=== PATIENT | female | born 1950 | race Hispanic/Latino ===

== ENCOUNTER → 2016-03-23 | Outpatient (CLI) | payer MEDICARE, MEDICAID ==
--- NOTE | 2016-03-23 14:47 | CT ---
EXAM DESCRIPTION: CT LUMBAR SPINE WITHOUT IV CONTRAST CLINICAL HISTORY: SPINAL ENTHESOPATHY M48.06 COMPARISON: None. TECHNIQUE: Non contrast transaxial CT images of the lumbar spine are obtained with coronal and sagittal reconstructed images. CT scan was done according to ALARA (As Low as Reasonably Achievable). GENERAL Lumbar vertebral bodies show normal height without compression deformity. Is was normal lumbar lordosis is seen. Hypertrophic mostly anterior right marginal endplate osteophytes are seen throughout the spine mainly in the lower thoracic region. Visualized intra-abdominal and retroperitoneal structures show calcifications of the adrenal gland. Surgical clips in the left upper quadrant are seen. Cortical cysts of the left kidney measures 16 mm. Diffuse osteopenia of the osseous structures is seen with moderate degenerative changes of the sacroiliac joints. T10-11: Mild bilateral facet hypertrophy without significant spinal canal stenosis or foraminal encroachment. T11-12: Mild diffuse disc space narrowing is seen with mild bilateral facet hypertrophic and degenerative changes contributing to mild spinal canal stenosis and foraminal encroachment. T12-L1: Mild diffuse disc space narrowing with mild bilateral facet hypertrophic and degenerative changes are seen. L1-2 Calcification of the posterior longitudinal ligament is seen with mild to moderate bilateral facet hypertrophic and degenerative changes contribute to mild spinal canal stenosis without foraminal encroachment. L2-3 Mild diffuse disc space narrowing is seen with moderate bilateral facet hypertrophic and degenerative changes including ligamentum flavum thickening contributing to moderate spinal canal stenosis with mild right foraminal encroachment. L3-4 Moderate bilateral facet hypertrophic and degenerative changes are seen with ligamentum flavum thickening. There is mild to moderate spinal canal stenosis with at least mild right greater than left foraminal encroachment. L4-5 Severe bilateral facet hypertrophic and degenerative change is seen with 3 mm anterolisthesis of L4 on L5. Air in the right facet joint is seen. Diffuse disc space narrowing is noted. There is moderate to severe spinal canal stenosis. The thecal sac measures 6 mm AP x 9 mm transverse with left greater than right lateral recess encroachment. Mild bilateral foraminal encroachment is seen. L5-S1 Mild diffuse disc space narrowing is seen with severe bilateral facet hypertrophic and degenerative changes right greater than left. There is mild bilateral foraminal encroachment with mild central canal stenosis. IMPRESSION: Multilevel mild to moderate disc degenerative changes with facet arthropathy of the lumbar spine. Facet arthropathy is most significant at the lowest 2 levels. Multifactorial moderate to severe spinal canal stenosis is seen at L4-5. Diffuse osteopenia of the osseous structures is seen. Electronically signed by: Aramis Benites MD 03/23/2016 14:45
== END ==
LOC: CT 13:53
PROVIDERS: ATTEND Neurological Surgery
DX: M48.06 Spinal stenosis, lumbar region (principal); M12.88 Other specific arthropathies, not elsewhere classified, other specified site; M85.88 Other specified disorders of bone density and structure, other site

== ENCOUNTER → 2016-03-27 | Outpatient (CLI) | payer MEDICARE, MEDICAID | LOC: BFHH 11:08 | PROVIDERS: ATTEND Family Medicine | DX: M19.90 Unspecified osteoarthritis, unspecified site (principal); I10 Essential (primary) hypertension; M81.0 Age-related osteoporosis without current pathological fracture ==

== ENCOUNTER → 2016-03-30 | Outpatient (CLI) | payer MEDICARE, MEDICAID ==
--- NOTE | 2016-03-30 14:51 | CT ---
EXAM DESCRIPTION: CT LUMBAR SPINE WITHOUT IV CONTRAST CLINICAL HISTORY: 65 y/o F, SPINAL STENOSIS COMPARISON: None TECHNIQUE: Thin slice imaging of the lumbar spine was performed. Data was reformatted for interpretation. FINDINGS: Vertebral body height is unremarkable. There is anterolisthesis of L4 on L5 due to severe facet degeneration. Atherosclerotic disease of the abdominal aorta noted. Prior cholecystectomy noted. L1-2: Bilateral facet degeneration and ligamentum flavum thickening. No neural foraminal narrowing. The midline diameter of the spinal canal is reduced to an unremarkable 11 mm due to a posterior disc osteophyte complex. L2-L3: Mild facet degeneration ligamentum flavum thickening. There is a 3 mm circumferential disk osteophyte complex. The midline diameter of spinal canal is widely patent measuring 1.3 cm. Bilateral neural foramina are unremarkable. L3-4: Severe moderate bilateral facet degeneration. Mild 3 mm circumferential disc bulge. No spinal canal or neural foraminal narrowing. L4-5: Severe facet degeneration. This results in grade 1 anterolisthesis. Ligamentum flavum thickening is noted. The midline diameter of the spinal canal is moderately narrowed to 7 mm. There is moderate bilateral neural foraminal narrowing noted. There is no definitive exiting nerve root contact at this time. L5-S1: Severe facet degeneration noted. No listhesis. 2 mm circumferential disc bulge. The midline diameter of the spinal canal is widely patent measuring 11 mm. There is mild bilateral neural foraminal narrowing, but no exiting nerve root contact. IMPRESSION: Today's exam demonstrates multilevel degenerative change as described above including degenerative change of bilateral sacroiliac joints. The most pronounced findings are at L4-5. At this level there is severe degenerative facet disease resulting in grade 1 anterolisthesis. Additionally at L4-5 there is moderate spinal canal narrowing as the canal is narrowed to 7 mm due to unroofing of the intervertebral disc and ligamentum flavum thickening. Bilateral neural foraminal narrowing is noted at L4-5 and L5-S1. Electronically signed by: Ky Chavez MD 03/30/2016 14:49
== END ==
LOC: CT 13:50
PROVIDERS: ATTEND Neurological Surgery
DX: M48.06 Spinal stenosis, lumbar region (principal); M12.88 Other specific arthropathies, not elsewhere classified, other specified site; M43.16 Spondylolisthesis, lumbar region

== ENCOUNTER → 2016-04-18 | Outpatient (CLI) | payer MEDICARE, MEDICAID ==
--- NOTE | 2016-04-18 09:55 | RAD ---
EXAM DESCRIPTION: Single-view of the pelvis and two views of the left hip are submitted for interpretation CLINICAL HISTORY: Pelvic pain. COMPARISON: None. TECHNIQUE: Single view of pelvis and two views of left hip. FINDINGS: Left hip arthroplasty. No evidence of hardware loosening. The pelvic ring is intact. Moderate degenerative change of right hip with joint space loss and osteophyte formation. Considerable degenerative change of bilateral sacroiliac joints, the pubic symphysis and lower lumbar spine. Vascular calcifications noted within the iliac vessels. IMPRESSION: No significant abnormality. Electronically signed by: Ky Chavez MD 04/18/2016 09:54
== END ==
LOC: RAD 08:14
PROVIDERS: ATTEND Orthopaedic Surgery
DX: M25.552 Pain in left hip (principal)

== ENCOUNTER 2016-05-01 12:13 | Emergency (ER) | payer MEDICARE, MEDICAID ==
--- NOTE | 2016-05-01 12:41 | ED.PDOC ---
History of Present Illness - General Chief Complaint: Headache Stated Complaint: headache Time Seen by Provider: 05/01/16 12:41 Source: patient, RN notes reviewed, EMS notes reviewed Exam Limitations: no limitations - History of Present Illness Initial Comments: Eduardo 65 y/o female stated that after drinking water this morning had onset of headache generalized sharp,stabbing accompam-nied by nausea/vomiting multiple times.She has history of dm,breast ca-s/p mastectomy htn.Denies blurry vision, head trauma,weakness,dizziness or syncopal episodes. Timing/Duration: 1-3 hours Severity: severe Improving Factors: nothing Worsening Factors: nothing Associated Symptoms: nausea/vomiting Allergies/Adverse Reactions: Allergies Diphenhydramine [From Benadryl] Allergy (Severe, Verified 12/11/15 11:14) Anaphylaxis Ciprofloxacin [From Cipro] Allergy (Verified 12/11/15 11:14) Home Medications: Ambulatory Orders Alprazolam [Xanax] 0.5 mg PO TID PRN 08/18/13 Metformin HCl 500 mg PO BIDFD 08/18/13 Isosorbide Mononitrate [Isosorbide Mononitrate ER] 30 mg PO DAILY 02/01/15 Methotrexate Sodium (Antirheum [Rheumatrex] 15 mg PO FR 02/01/15 Potassium Chloride [Potassium Chloride ER] 20 meq PO BIDFD 02/01/15 Sertraline HCl 100 mg PO DAILY 02/01/15 Acetaminophen W/ Codeine [Tylenol W/ CODEINE #3] 1 ea PO Q4H PRN 06/17/15 Albuterol Inhaler [Ventolin Hfa Inhaler] 1 puff INH QID PRN 06/17/15 Losartan Potassium 25 mg PO DAILY 06/17/15 Adalimumab [Humira Pen] 1 ml SUBCU BIW 10/17/15 Gabapentin 300 mg PO TID 10/17/15 Albuterol Inhaler [Ventolin Hfa Inhaler] 1 puff INH QID 10/18/15 Carvedilol [Coreg] 3.125 mg PO BID 10/18/15 Cholecalciferol [Vitamin D3] 5,000 unit PO DAILY 10/18/15 Ondansetron HCl [Zofran] 4 mg PO Q6H PRN 10/18/15 Acetaminophen [Tylenol] 650 mg PO Q4H PRN #0 tab 10/21/15 Aluminum & Magnesium Hydroxide [Maalox] 30 ml PO Q4H PRN #0 ud 10/21/15 Docusate Calcium [Surfak] 240 mg PO BEDTIME #0 cap 10/21/15 Levalbuterol Nebs [Xopenex NEBS] 1.25 mg NEB RTTID #0 vial 10/21/15 Rivaroxaban [Xarelto] 10 mg PO QD #32 tab 10/21/15 HYDROcodone 5MG/APAP 325MG [[place] 5/325] 1 - 2 tab PO Q6H PRN 12/11/15 Pantoprazole Sodium [Protonix] 40 mg PO ACBK 12/11/15 Sulfamethoxazole-Trimethoprim [Bactrim Ds 800-160 mg] 1 tab PO BID #20 tab 12/10 Insulin Lispro (Human) [Humalog] 300 unit SC ACHS 12/14/15 Magnesium Hydroxide [Milk Of Magnesia] 30 ml PO PRN 12/14/15 Nystatin Powder 15 gm TOP BID 12/14/15 Doxycycline Hyclate 100 mg PO QAM #10 tab 12/17/15 Sulfa/Trimeth 800/160 (Ds) Tab [Bactrim DS Tab] 1 ea PO BID #20 tab 12/17/15 Acetaminophen W/ Codeine [Tylenol w/Codeine 300-30 mg] 1 tab PO TID PRN #10 tab 05/01/16 Methocarbamol [Robaxin] 500 mg PO BID #10 tab 05/01/16 Review of Systems - Review of Systems Constitutional: States: no symptoms reported EENTM: States: no symptoms reported Respiratory: States: no symptoms reported Cardiology: States: no symptoms reported Gastrointestinal/Abdominal: States: nausea, vomiting Genitourinary: States: no symptoms reported Musculoskeletal: States: no symptoms reported Skin: States: no symptoms reported Neurological: States: headache Endocrine: States: no symptoms reported Hematologic/Lymphatic: States: no symptoms reported Past Medical History (General) - Patient Medical History Hx Seizures: No Hx Stroke: Yes - 1996 Hx Dementia: No Hx Asthma: No Hx of COPD: No Hx Cardiac Disorders: Yes - CHF Hx Congestive Heart Failure: No Hx Pacemaker: Yes Hx Hypertension: Yes Hx Thyroid Disease: No Hx Diabetes: Yes Hx Gastroesophageal Reflux: Yes Hx Renal Disease: No Hx Cancer: Yes - BREAST Hx of HIV: No Hx Hepatitis C: No Hx MRSA: Yes Hx Other PMH: Yes - Connective tissue disease MRSA Source:: Wound Surgical History: cholecystectomy, other - neck,bilateral mastectomy - Vaccination History Hx Tetanus, Diphtheria Vaccination: Yes Hx Influenza Vaccination: No Hx Pneumococcal Vaccination: Yes - Social History Hx Tobacco Use: No Hx Chewing Tobacco Use: No Hx Alcohol Use: No Hx Substance Use: No Hx Substance Use Treatment: No Hx Depression: No Hx Physical Abuse: No Hx Emotional Abuse: No Hx Suspected Abuse: No - Female History Patient : No Family Medical History - Family History Grandparents Family History: Unknown Hx Cardiac Disease: Yes Hx Family Diabetes: Yes Physical Exam - Physical Exam General Appearance: Alert, Other - in pain Eye Exam: bilateral normal Ears, Nose, Throat: hearing grossly normal, normal ENT inspection, normal pharynx Neck: non-tender, full range of motion, supple Respiratory: chest non-tender, lungs clear, normal breath sounds, no respiratory distress, other - mastectomy bilateral Cardiovascular/Chest: normal peripheral pulses, regular rate, rhythm, no edema, no gallop, no JVD, no murmur Peripheral Pulses: radial,right: 2+, radial,left: 2+ Gastrointestinal/Abdominal: normal bowel sounds, non tender, soft, no organomegaly, no pulsatile mass Back Exam: normal inspection, no CVA tenderness, no vertebral tenderness Extremity: normal range of motion, non-tender, normal inspection 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, no motor/sensory deficits, alert, normal mood/affect Skin Exam: normal color, warm/dry Lymphatic: no adenopathy Progress - Results/Orders Results/Orders: 05/01/16 12:45 EKG STAT Laboratory Results WBC 11.4 K/mm3 (4.8-10.8) H 05/01/16 13:21 RBC 4.40 M/mm3 (4.20-5.40) 05/01/16 13:21 Hgb 11.9 gm/dL (12.0-16.0) L 05/01/16 13:21 Hct 36.3 % (36.0-47.0) 05/01/16 13:21 MCV 82.5 fl (81.0-99.0) 05/01/16 13:21 MCH 27.0 pg (27.0-31.0) 05/01/16 13:21 MCHC 32.8 g/dL (33.0-37.0) L 05/01/16 13:21 RDW 16.7 % (11.5-14.5) H 05/01/16 13:21 Plt Count 142 K/mm3 (130-400) 05/01/16 13:21 MPV 8.3 fl (7.40-10.4) 05/01/16 13:21 Absolute Neuts (auto) 10.20 K/uL (1.8-6.8) H 05/01/16 13:21 Absolute Lymphs (auto) 0.90 K/uL (1.0-3.4) L 05/01/16 13:21 Absolute Monos (auto) 0.20 K/uL (0.2-0.8) 05/01/16 13:21 Absolute Eos (auto) 0.10 K/uL (0.0-0.4) 05/01/16 13:21 Absolute Basos (auto) 0.10 K/uL (0.0-0.1) 05/01/16 13:21 Neutrophils % 89.2 % (42.0-78.0) H 05/01/16 13:21 Lymphocytes % 7.5 % (20.0-50.0) L 05/01/16 13:21 Monocytes % 1.8 % (2.0-9.0) L 05/01/16 13:21 Eosinophils % 0.9 % (1.0-5.0) L 05/01/16 13:21 Basophils % 0.6 % (0.0-2.0) 05/01/16 13:21 Sodium 134 mmol/L (135-145) L 05/01/16 13:21 Potassium 3.9 mmol/L (3.6-5.0) 05/01/16 13:21 Chloride 103 mmol/L (101-111) 05/01/16 13:21 Carbon Dioxide 23 mmol/L (21-31) 05/01/16 13:21 Anion Gap 11.9 (12-18) L 05/01/16 13:21 BUN 16 mg/dL (7-18) 05/01/16 13:21 Creatinine 0.66 mg/dL (0.6-1.3) 05/01/16 13:21 BUN/Creatinine Ratio 24.2 (10-20) H 05/01/16 13:21 Random Glucose 114 mg/dL (70-105) H 05/01/16 13:21 Serum Osmolality 270.3 mOsm/L (275-295) L 05/01/16 13:21 Calcium 9.4 mg/dL (8.4-10.2) 05/01/16 13:21 Total Bilirubin 0.8 mg/dL (0.2-1.0) 05/01/16 13:21 AST 29 IU/L (10-42) 05/01/16 13:21 ALT 29 IU/L (10-60) 05/01/16 13:21 Alkaline Phosphatase 82 IU/L (42-121) 05/01/16 13:21 Serum Total Protein 7.4 gm/dL (6.4-8.2) 05/01/16 13:21 Albumin 4.2 g/dl (3.2-5.5) 05/01/16 13:21 Globulin 3.2 gm/dL (2.3-3.5) 05/01/16 13:21 Albumin/Globulin Ratio 1.3 (1.1-1.9) 05/01/16 13:21 Lipase 29 U/L (22-51) 05/01/16 13:21 Departure - Departure Clinical Impression: Cervicogenic headache Time of Disposition: 16:59 Disposition: Discharge to Home or Self Care Condition: Good Departure Forms: ED Discharge - Pt. Copy, Patient Portal Self Enrollment Instructions: DI for Headache Prescriptions: Methocarbamol [Robaxin] 500 mg PO BID #10 tab Acetaminophen W/ Codeine [Tylenol w/Codeine 300-30 mg] 1 tab PO TID PRN #10 tab PRN Reason: Headache/Migraine Pain Home Medications: Ambulatory Orders Alprazolam [Xanax] 0.5 mg PO TID PRN 08/18/13 Metformin HCl 500 mg PO BIDFD 08/18/13 Isosorbide Mononitrate [Isosorbide Mononitrate ER] 30 mg PO DAILY 02/01/15 Methotrexate Sodium (Antirheum [Rheumatrex] 15 mg PO FR 02/01/15 Potassium Chloride [Potassium Chloride ER] 20 meq PO BIDFD 02/01/15 Sertraline HCl 100 mg PO DAILY 02/01/15 Acetaminophen W/ Codeine [Tylenol W/ CODEINE #3] 1 ea PO Q4H PRN 06/17/15 Albuterol Inhaler [Ventolin Hfa Inhaler] 1 puff INH QID PRN 06/17/15 Losartan Potassium 25 mg PO DAILY 06/17/15 Adalimumab [Humira Pen] 1 ml SUBCU BIW 10/17/15 Gabapentin 300 mg PO TID 10/17/15 Albuterol Inhaler [Ventolin Hfa Inhaler] 1 puff INH QID 10/18/15 Carvedilol [Coreg] 3.125 mg PO BID 10/18/15 Cholecalciferol [Vitamin D3] 5,000 unit PO DAILY 10/18/15 Ondansetron HCl [Zofran] 4 mg PO Q6H PRN 10/18/15 Acetaminophen [Tylenol] 650 mg PO Q4H PRN #0 tab 10/21/15 Aluminum & Magnesium Hydroxide [Maalox] 30 ml PO Q4H PRN #0 ud 10/21/15 Docusate Calcium [Surfak] 240 mg PO BEDTIME #0 cap 10/21/15 Levalbuterol Nebs [Xopenex NEBS] 1.25 mg NEB RTTID #0 vial 10/21/15 Rivaroxaban [Xarelto] 10 mg PO QD #32 tab 10/21/15 HYDROcodone 5MG/APAP 325MG [[place] 5/325] 1 - 2 tab PO Q6H PRN 12/11/15 Pantoprazole Sodium [Protonix] 40 mg PO ACBK 12/11/15 Sulfamethoxazole-Trimethoprim [Bactrim Ds 800-160 mg] 1 tab PO BID #20 tab 12/10 Insulin Lispro (Human) [Humalog] 300 unit SC ACHS 12/14/15 Magnesium Hydroxide [Milk Of Magnesia] 30 ml PO PRN 12/14/15 Nystatin Powder 15 gm TOP BID 12/14/15 Doxycycline Hyclate 100 mg PO QAM #10 tab 12/17/15 Sulfa/Trimeth 800/160 (Ds) Tab [Bactrim DS Tab] 1 ea PO BID #20 tab 12/17/15 Acetaminophen W/ Codeine [Tylenol w/Codeine 300-30 mg] 1 tab PO TID PRN #10 tab 05/01/16 Methocarbamol [Robaxin] 500 mg PO BID #10 tab 05/01/16 Additional Instructions: RETURN TO EMERGENCY ROOM NEEDED
[2016-05-01 12:42] VITALS: TEMP 99.2
[2016-05-01] MEDS ORDERED: ONDANSETRON INJ 4 MG/2 ML VIAL IV ONE (12:42)
[2016-05-01] MEDS ORDERED: SODIUM CHLORIDE 0.9% 1000ML 1,000 ML IVS ONE (12:43)
[2016-05-01] MEDS ORDERED: HYDROmorphone HCL INJ 2 MG/ML VIAL IV ONE (13:34)
--- NOTE | 2016-05-01 14:19 | CT ---
EXAM DESCRIPTION: CT HEAD WITHOUT IV CONTRAST CLINICAL HISTORY: headache COMPARISON: 18 February 2016 TECHNIQUE: Non contrast cranial CT FINDINGS: Ventricles and sulci are unremarkable. There is no hemorrhage or mass. There are no white matter abnormalities detected. The calvarium is unremarkable. The visualized paranasal sinuses and the mastoids are clear. IMPRESSION: 1. Normal CT head Electronically signed by: Chico Arrieta MD 05/01/2016 14:17
--- NOTE | 2016-05-01 15:41 | RAD ---
EXAM DESCRIPTION: XR CHEST 1 VIEW CLINICAL HISTORY: cough COMPARISON: November 16, 2014 TECHNIQUE: AP portable chest. FINDINGS: There is mild cardiomegaly and vascular prominence which may indicate early CHF. Unipolar pacer is present unchanged. No effusion. IMPRESSION: 1. Cardiomegaly with vascular congestion Electronically signed by: Abhijit Huerta MD 05/01/2016 15:40
[2016-05-01 17:16] VITALS: BP 127/54; O2SAT 98
== END 2016-05-01 17:16 | disposition home or self-care (01) ==
LOC: ER 12:13
DX: R51 Headache (principal); Z88.3 Allergy status to other anti-infective agents; Z79.899 Other long term (current) drug therapy; Z86.73 Personal history of transient ischemic attack (TIA), and cerebral infarction without residual deficits; I11.0 Hypertensive heart disease with heart failure; I50.9 Heart failure, unspecified; Z95.0 Presence of cardiac pacemaker; E11.9 Type 2 diabetes mellitus without complications; Z85.3 Personal history of malignant neoplasm of breast; Z90.13 Acquired absence of bilateral breasts and nipples; M35.9 Systemic involvement of connective tissue, unspecified
CPT/HCPCS: 36415; 70450; 71010; 80053; 83690; 85025; 93005; J1170; J2405; J7030

== ENCOUNTER 2016-05-02 12:39 | Emergency (ER) | payer MEDICARE, MEDICAID ==
[2016-05-02] MEDS: SODIUM CHLORIDE 0.9% (FLUSH) 10 ML SYG IV PRN (13:23)
--- NOTE | 2016-05-02 13:28 | CT ---
EXAM DESCRIPTION: CT HEAD WITHOUT IV CONTRAST CLINICAL HISTORY: Headache/mental status changes/weakness COMPARISON: May 01, 2016 TECHNIQUE: Noncontrast transaxial CT images of the head are obtained from base to vertex. CT scan was done according to ALARA (As Low as Reasonably Achievable). FINDINGS: The midline structures are not displaced. Sulci are age-appropriate. There are areas of decreased attenuation in the periventricular white matter and the white matter of the centrum semiovale. There is no evidence of mass, mass-effect, hydrocephalus, or acute intracranial hemorrhage. No abnormal extra axial fluid collection is seen. Bone windows show no evidence of depressed skull fracture. Moderate mucosal thickening is seen in the right greater than left ethmoid air cells to right frontal sinus. IMPRESSION: 1. Age-appropriate atrophy with evidence of old small vessel ischemic type changes seen. 2. No acute abnormality is seen on noncontrast CT of the head. Electronically signed by: Aramis Benites MD 05/02/2016 13:26
--- NOTE | 2016-05-02 15:25 | ED.PDOC ---
History of Present Illness - General Chief Complaint: Headache Stated Complaint: headache,altered neuro Time Seen by Provider: 05/02/16 12:43 Source: RN notes reviewed, Vital Signs reviewed, family, EMS, old records Exam Limitations: clinical condition - History of Present Illness Initial Comments: Patient is a 65 y/o female who was brought in by EMS due to change in mental status and headache. Patient was seen here in the ED yesterday, was worked up, and was discharged with a diagnosis of headache. She was given Tylenol #3 and Robaxin for her headache. She did not get her prescriptons filled. Her grandson went to check on her today and noticed she was not acting normally, so EMS was called. Patient is lethargic, and although she wakes, she is unable to focus on questions to answer them. This is much different than her baseline according to Patient's daughters. Patient had surgery on her C-spine two weeks ago, and was given hydrocodone/ apap 10/325 and tramadol 50. It is unknown how many of these Patient has taken , however according to her daughters, Patient is not the type of person to take any kind of medication other than according to directions. Timing/Duration: unsure - Last known normal yesterday in the ED. Allergies/Adverse Reactions: Allergies Diphenhydramine [From Benadryl] Allergy (Severe, Verified 12/11/15 11:14) Anaphylaxis Ciprofloxacin [From Cipro] Allergy (Verified 12/11/15 11:14) Home Medications: Ambulatory Orders Alprazolam [Xanax] 0.5 mg PO TID PRN 08/18/13 Metformin HCl 500 mg PO BIDFD 08/18/13 Isosorbide Mononitrate [Isosorbide Mononitrate ER] 30 mg PO DAILY 02/01/15 Methotrexate Sodium (Antirheum [Rheumatrex] 15 mg PO FR 02/01/15 Potassium Chloride [Potassium Chloride ER] 20 meq PO BIDFD 02/01/15 Sertraline HCl 100 mg PO DAILY 02/01/15 Acetaminophen W/ Codeine [Tylenol W/ CODEINE #3] 1 ea PO Q4H PRN 06/17/15 Albuterol Inhaler [Ventolin Hfa Inhaler] 1 puff INH QID PRN 06/17/15 Losartan Potassium 25 mg PO DAILY 06/17/15 Adalimumab [Humira Pen] 1 ml SUBCU BIW 10/17/15 Gabapentin 300 mg PO TID 10/17/15 Albuterol Inhaler [Ventolin Hfa Inhaler] 1 puff INH QID 10/18/15 Carvedilol [Coreg] 3.125 mg PO BID 10/18/15 Cholecalciferol [Vitamin D3] 5,000 unit PO DAILY 10/18/15 Ondansetron HCl [Zofran] 4 mg PO Q6H PRN 10/18/15 Acetaminophen [Tylenol] 650 mg PO Q4H PRN #0 tab 10/21/15 Aluminum & Magnesium Hydroxide [Maalox] 30 ml PO Q4H PRN #0 ud 10/21/15 Docusate Calcium [Surfak] 240 mg PO BEDTIME #0 cap 10/21/15 Levalbuterol Nebs [Xopenex NEBS] 1.25 mg NEB RTTID #0 vial 10/21/15 Rivaroxaban [Xarelto] 10 mg PO QD #32 tab 10/21/15 HYDROcodone 5MG/APAP 325MG [[place] 5/325] 1 - 2 tab PO Q6H PRN 12/11/15 Pantoprazole Sodium [Protonix] 40 mg PO ACBK 12/11/15 Sulfamethoxazole-Trimethoprim [Bactrim Ds 800-160 mg] 1 tab PO BID #20 tab 12/10 Insulin Lispro (Human) [Humalog] 300 unit SC ACHS 12/14/15 Magnesium Hydroxide [Milk Of Magnesia] 30 ml PO PRN 12/14/15 Nystatin Powder 15 gm TOP BID 12/14/15 Doxycycline Hyclate 100 mg PO QAM #10 tab 12/17/15 Sulfa/Trimeth 800/160 (Ds) Tab [Bactrim DS Tab] 1 ea PO BID #20 tab 12/17/15 Acetaminophen W/ Codeine [Tylenol w/Codeine 300-30 mg] 1 tab PO TID PRN #10 tab 05/01/16 Methocarbamol [Robaxin] 500 mg PO BID #10 tab 05/01/16 Review of Systems - Review of Systems Constitutional: States: no symptoms reported, weakness Musculoskeletal: States: neck pain Neurological: States: headache, weakness Unable to Obtain Due To: clinical condition - Patient will only occasionally answer questions, however not appropriately. Past Medical History (General) - Patient Medical History Hx Seizures: No Hx Stroke: Yes - 1996 Hx Dementia: No Hx Asthma: No Hx of COPD: No Hx Cardiac Disorders: Yes - CHF Hx Congestive Heart Failure: No Hx Pacemaker: Yes Hx Hypertension: Yes Hx Thyroid Disease: No Hx Diabetes: Yes Hx Gastroesophageal Reflux: Yes Hx Renal Disease: No Hx Cancer: Yes - BREAST Hx of HIV: No Hx Hepatitis C: No Hx MRSA: Yes MRSA Source:: Wound - Vaccination History Hx Tetanus, Diphtheria Vaccination: Yes Hx Influenza Vaccination: No Hx Pneumococcal Vaccination: Yes - Social History Hx Tobacco Use: No Hx Chewing Tobacco Use: No Hx Alcohol Use: No Hx Substance Use: No Hx Substance Use Treatment: No Hx Depression: No Hx Physical Abuse: No Hx Emotional Abuse: No Hx Suspected Abuse: No - Female History Patient is a Female of Child Bearing Age (10 -59 yrs old): No Patient : No Family Medical History - Family History Grandparents Family History: Unknown Hx Cardiac Disease: Yes Hx Family Diabetes: Yes Physical Exam - Physical Exam General Appearance: No apparent distress, Lethargic, Obese, Restless Eye Exam: bilateral normal Ears, Nose, Throat: hearing grossly normal Neck: other - incision on right neck - clean/dry/intact Respiratory: lungs clear, normal breath sounds, no respiratory distress, no accessory muscle use Cardiovascular/Chest: regular rate, rhythm, no edema, no gallop, no murmur Gastrointestinal/Abdominal: normal bowel sounds, non tender, soft, no organomegaly Extremity: non-tender Neurologic: abnormal silicator II-XII - Patient will not follow instructions, motor weakness, other - oriented x 1 Skin Exam: warm/dry Progress - Progress Progress: 05/02/16 15:48 Patient's sodium and potassium have changed significantly since yesterday - Na+ + 134 to 129, K+ 3.9 to 3.0. Family requested that we transfer Patient to [place] because her family lives in [place]. 05/02/16 15:49 - Results/Orders Results/Orders: 05/02/16 12:51 Temperature 99.4 F Pulse Rate [ 104 H Left Ulnar] Respiratory 20 Rate Blood Pressure 101/63 [Left Arm] O2 Sat by Pulse 97 Oximetry 05/02/16 12:55 Telemetry .ONCE Sodium Chloride 0.9% (Flush) [Saline Flush Syringe] 10 ml IV PRN PRN 05/02/16 13:00 EKG STAT 05/02/16 15:08 KCl 20Meq/Water For Inj 100Ml [Potassium 20meq in Water 100ml] 20 meq Premix Bag 1 bag IVPB ONCE Laboratory Results WBC 12.8 K/mm3 (4.8-10.8) H 05/02/16 13:35 RBC 4.11 M/mm3 (4.20-5.40) L 05/02/16 13:35 Hgb 11.1 gm/dL (12.0-16.0) L 05/02/16 13:35 Hct 33.5 % (36.0-47.0) L 05/02/16 13:35 MCV 81.6 fl (81.0-99.0) 05/02/16 13:35 MCH 27.0 pg (27.0-31.0) 05/02/16 13:35 MCHC 33.0 g/dL (33.0-37.0) 05/02/16 13:35 RDW 16.0 % (11.5-14.5) H 05/02/16 13:35 Plt Count 131 K/mm3 (130-400) 05/02/16 13:35 MPV 8.4 fl (7.40-10.4) 05/02/16 13:35 Absolute Neuts (auto) 11.30 K/uL (1.8-6.8) H 05/02/16 13:35 Absolute Lymphs (auto) 0.70 K/uL (1.0-3.4) L 05/02/16 13:35 Absolute Monos (auto) 0.70 K/uL (0.2-0.8) 05/02/16 13:35 Absolute Eos (auto) 0.00 K/uL (0.0-0.4) 05/02/16 13:35 Absolute Basos (auto) 0.10 K/uL (0.0-0.1) 05/02/16 13:35 Neutrophils % 88.2 % (42.0-78.0) H 05/02/16 13:35 Lymphocytes % 5.8 % (20.0-50.0) L 05/02/16 13:35 Monocytes % 5.2 % (2.0-9.0) 05/02/16 13:35 Eosinophils % 0.1 % (1.0-5.0) L 05/02/16 13:35 Basophils % 0.7 % (0.0-2.0) 05/02/16 13:35 PT 15.5 SECONDS (9.4-12.5) H 05/02/16 13:35 INR 1.380 05/02/16 13:35 PTT (SP) 29.0 SECONDS (25.1-36.5) 05/02/16 13:35 Sodium 129 mmol/L (135-145) L 05/02/16 13:35 Potassium 3.0 mmol/L (3.6-5.0) L D 05/02/16 13:35 Chloride 97 mmol/L (101-111) L 05/02/16 13:35 Carbon Dioxide 22 mmol/L (21-31) 05/02/16 13:35 Anion Gap 13.0 (12-18) 05/02/16 13:35 BUN 15 mg/dL (7-18) 05/02/16 13:35 Creatinine 0.72 mg/dL (0.6-1.3) 05/02/16 13:35 BUN/Creatinine Ratio 20.8 (10-20) H 05/02/16 13:35 Random Glucose 137 mg/dL (70-105) H 05/02/16 13:35 Serum Osmolality 261.9 mOsm/L (275-295) L 05/02/16 13:35 Calcium 8.8 mg/dL (8.4-10.2) 05/02/16 13:35 Total Bilirubin 1.3 mg/dL (0.2-1.0) H D 05/02/16 13:35 AST 18 IU/L (10-42) 05/02/16 13:35 ALT 20 IU/L (10-60) 05/02/16 13:35 Alkaline Phosphatase 61 IU/L (42-121) D 05/02/16 13:35 Creatine Kinase 50 IU/L (26-140) 05/02/16 13:35 CK-MB (CK-2) 0.7 ng/mL (0.0-4.4) 05/02/16 13:35 CK-MB (CK-2) % Not Reportable 05/02/16 13:35 Troponin I 0.04 ng/mL (0.01-0.05) 05/02/16 13:35 Serum Total Protein 7.0 gm/dL (6.4-8.2) 05/02/16 13:35 Albumin 3.7 g/dl (3.2-5.5) 05/02/16 13:35 Globulin 3.3 gm/dL (2.3-3.5) 05/02/16 13:35 Albumin/Globulin Ratio 1.1 (1.1-1.9) 05/02/16 13:35 Urine Color Nicole (Yellow) H 05/02/16 14:29 Urine Appearance Cloudy (Clear) 05/02/16 14:29 Urine pH 7.0 (4.5-7.8) 05/02/16 14:29 Ur Specific [place] 1.025 (1.005-1.030) 05/02/16 14:29 Urine Protein 100 mg/dL H 05/02/16 14:29 Urine Glucose (UA) Negative mg/dL (Negative) 05/02/16 14:29 Urine Ketones Negative mg/dL (NEGATIVE) 05/02/16 14:29 Urine Blood Moderate (Negative) H 05/02/16 14:29 Urine Nitrite Negative 05/02/16 14:29 Urine Bilirubin Small (NEGATIVE) H 05/02/16 14:29 Urine Urobilinogen 1.0 mg/dL (0.2-1.0) 05/02/16 14:29 Ur Leukocyte Esterase Negative (Negative) 05/02/16 14:29 Urine RBC 5-10 /hpf H 05/02/16 14:29 Urine WBC 0-1 /hpf 05/02/16 14:29 Ur Epithelial Cells 0-1 /hpf 05/02/16 14:29 Urine Bacteria 4+ H 05/02/16 14:29 - EKG/XRAY/CT EKG: Sinus - 87 bpm, no ST T wave changes, Changed from - 05/01/2016 - Normal QT Comments: NML axis, Prolonged QT, Abnormal EKG CT Ordered: Yes CT Interpretation Call Back: No - Report sent - no acute process Departure - Departure Clinical Impression: Hyponatremia with decreased serum osmolality, Hypokalemia Altered mental status Qualifiers: Altered mental status type: somnolence Qualifier Code: (R40.0) Somnolence Headache Qualifiers: Headache type: unspecified Headache chronicity pattern: acute headache Intractability: intractable Qualifier Code: (R51) Headache Time of Disposition: 15:46 Condition: Poor Home Medications: Ambulatory Orders Alprazolam [Xanax] 0.5 mg PO TID PRN 08/18/13 Metformin HCl 500 mg PO BIDFD 08/18/13 Isosorbide Mononitrate [Isosorbide Mononitrate ER] 30 mg PO DAILY 02/01/15 Methotrexate Sodium (Antirheum [Rheumatrex] 15 mg PO FR 02/01/15 Potassium Chloride [Potassium Chloride ER] 20 meq PO BIDFD 02/01/15 Sertraline HCl 100 mg PO DAILY 02/01/15 Acetaminophen W/ Codeine [Tylenol W/ CODEINE #3] 1 ea PO Q4H PRN 06/17/15 Albuterol Inhaler [Ventolin Hfa Inhaler] 1 puff INH QID PRN 06/17/15 Losartan Potassium 25 mg PO DAILY 06/17/15 Adalimumab [Humira Pen] 1 ml SUBCU BIW 10/17/15 Gabapentin 300 mg PO TID 10/17/15 Albuterol Inhaler [Ventolin Hfa Inhaler] 1 puff INH QID 10/18/15 Carvedilol [Coreg] 3.125 mg PO BID 10/18/15 Cholecalciferol [Vitamin D3] 5,000 unit PO DAILY 10/18/15 Ondansetron HCl [Zofran] 4 mg PO Q6H PRN 10/18/15 Acetaminophen [Tylenol] 650 mg PO Q4H PRN #0 tab 10/21/15 Aluminum & Magnesium Hydroxide [Maalox] 30 ml PO Q4H PRN #0 ud 10/21/15 Docusate Calcium [Surfak] 240 mg PO BEDTIME #0 cap 10/21/15 Levalbuterol Nebs [Xopenex NEBS] 1.25 mg NEB RTTID #0 vial 10/21/15 Rivaroxaban [Xarelto] 10 mg PO QD #32 tab 10/21/15 HYDROcodone 5MG/APAP 325MG [[place] 5/325] 1 - 2 tab PO Q6H PRN 12/11/15 Pantoprazole Sodium [Protonix] 40 mg PO ACBK 12/11/15 Sulfamethoxazole-Trimethoprim [Bactrim Ds 800-160 mg] 1 tab PO BID #20 tab 12/10 Insulin Lispro (Human) [Humalog] 300 unit SC ACHS 12/14/15 Magnesium Hydroxide [Milk Of Magnesia] 30 ml PO PRN 12/14/15 Nystatin Powder 15 gm TOP BID 12/14/15 Doxycycline Hyclate 100 mg PO QAM #10 tab 12/17/15 Sulfa/Trimeth 800/160 (Ds) Tab [Bactrim DS Tab] 1 ea PO BID #20 tab 12/17/15 Acetaminophen W/ Codeine [Tylenol w/Codeine 300-30 mg] 1 tab PO TID PRN #10 tab 05/01/16 Methocarbamol [Robaxin] 500 mg PO BID #10 tab 05/01/16 Transfer to Outside Facility - Transfer Information Accepting Provider:: Dr. Lovett Accepting Facility: [facility] Reason for Transfer: Family request
[2016-05-02] MEDS ORDERED: KCL 20MEQ/WATER FOR INJ 100ML 100 ML IVPB ONE (15:43)
[2016-05-02] MEDS: KCL 20MEQ/WATER FOR INJ 100ML 20 MEQ in PREMIX BAG 1 BAG IVPB ONE (15:43)
[2016-05-02 16:03] VITALS: TEMP 97.9
[2016-05-02 16:14] VITALS: BP 108/62; O2SAT 96
== END 2016-05-02 16:14 | disposition short-term general hospital (02) ==
LOC: ER 12:39
DX: E87.1 Hypo-osmolality and hyponatremia (principal); E87.6 Hypokalemia; R51 Headache; R40.0 Somnolence; Z88.3 Allergy status to other anti-infective agents; Z88.8 Allergy status to other drugs, medicaments and biological substances; Z79.899 Other long term (current) drug therapy; I11.0 Hypertensive heart disease with heart failure; I50.9 Heart failure, unspecified; E11.9 Type 2 diabetes mellitus without complications; K21.9 Gastro-esophageal reflux disease without esophagitis; Z95.0 Presence of cardiac pacemaker; Z86.73 Personal history of transient ischemic attack (TIA), and cerebral infarction without residual deficits; Z85.3 Personal history of malignant neoplasm of breast
CPT/HCPCS: 36415; 70450; 80053; 81001; 82550; 82553; 84484; 85025; 85610; 85730; 93005; J3480

== ENCOUNTER → 2016-07-31 | Outpatient (CLI) | payer MEDICARE, MEDICAID | END | disposition home or self-care (01) | LOC: BFHH 08:48 | PROVIDERS: ATTEND Family Medicine | DX: E11.9 Type 2 diabetes mellitus without complications (principal); I10 Essential (primary) hypertension; E78.5 Hyperlipidemia, unspecified ==

== ENCOUNTER → 2016-09-14 | Outpatient (CLI) | payer MEDICARE, MEDICAID | END | disposition home or self-care (01) | LOC: CT 14:31 | PROVIDERS: ATTEND Neurological Surgery | DX: M43.16 Spondylolisthesis, lumbar region (principal) ==

== ENCOUNTER → 2016-09-26 | Outpatient (CLI) | payer MEDICARE, MEDICAID ==
--- NOTE | 2016-09-26 15:17 | CT ---
EXAM DESCRIPTION: Pelvis CLINICAL HISTORY: 66 years Female, PAIN COMPARISON: CT of the lumbar spine dated 14 September 2016, AP pelvis dated 18 April 2016 TECHNIQUE: Transaxial images were obtained without intravenous or oral contrast media. Sagittal and coronal reconstruction was performed.This exam was performed according to our departmental dose-optimization program, which includes automated exposure control, adjustment of the mA and/or kV according to patient size and/or use of iterative reconstruction technique. FINDINGS: Pedicle screw fusion is observed in the lower lumbar spine. Calcific atherosclerotic changes observed in the abdominal aorta and iliac vessels without evidence of aneurysmal dilatation. No pelvic adenopathy is observed. No free fluid is observed. The patient is post hysterectomy. Imaging of the pelvis is mildly degraded by metallic artifact from a left hip prosthesis. Degenerative changes are observed in the sacroiliac joints bilaterally. Degenerative changes are also observed in the right hip. No acute fracturing is detected. No bowel abnormality is seen. IMPRESSION: 1. Pedicle screw and interbody fusion is observed at the L4-5 level. 2. A right hip arthroplasty is observed. 3. Degenerative changes are seen in both sacroiliac joints. Electronically signed by: Chico Arrieta MD 09/26/2016 3:15 PM CDT
== END | disposition home or self-care (01) ==
LOC: CT 08:52
PROVIDERS: ATTEND Neurological Surgery
DX: M16.0 Bilateral primary osteoarthritis of hip (principal)

== ENCOUNTER → 2016-10-31 | Outpatient (CLI) | payer MEDICARE, MEDICAID | LOC: LAB.O 09:35 | PROVIDERS: ATTEND Orthopaedic Surgery | DX: M16.12 Unilateral primary osteoarthritis, left hip (principal); G89.18 Other acute postprocedural pain; T84.84XD Pain due to internal orthopedic prosthetic devices, implants and grafts, subsequent encounter ==

== ENCOUNTER 2016-11-02 18:10 | Emergency (ER) | payer MEDICARE, MEDICAID ==
--- NOTE | 2016-11-02 19:14 | ED.PDOC ---
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 Pain is non-radiating, cramping in nature, constant but intermittent in intensity, worse with movement, better with rest, no previous episodes. No associated symptoms. Timing/Duration: 1 hour Severity: moderate Improving Factors: rest Worsening Factors: movement Associated Symptoms: denies symptoms Allergies/Adverse Reactions: Allergies Diphenhydramine [From Benadryl] Allergy (Severe, Verified 11/02/16 18:29) Anaphylaxis Ciprofloxacin [From Cipro] Allergy (Verified 11/02/16 18:29) Home Medications: Ambulatory Orders Alprazolam [Xanax] 0.5 mg PO TID PRN 08/18/13 Metformin HCl 500 mg PO BIDFD 08/18/13 Isosorbide Mononitrate [Isosorbide Mononitrate ER] 30 mg PO DAILY 02/01/15 Methotrexate Sodium (Antirheum [Rheumatrex] 15 mg PO SA 02/01/15 Potassium Chloride [Potassium Chloride ER] 20 meq PO BIDFD 02/01/15 Sertraline HCl 100 mg PO DAILY 02/01/15 Albuterol Inhaler [Ventolin Hfa Inhaler] 1 puff INH QID PRN 06/17/15 Losartan Potassium 25 mg PO DAILY 06/17/15 Gabapentin 300 mg PO TID 10/17/15 Carvedilol [Coreg] 3.125 mg PO BID 10/18/15 Levalbuterol Nebs [Xopenex NEBS] 1.25 mg NEB RTTID #0 vial 10/21/15 Pantoprazole Tablet [Protonix] 40 mg PO DAILY 12/11/15 Methocarbamol [Robaxin] 500 mg PO BID #10 tab 05/01/16 Review of Systems - Review of Systems Constitutional: States: no symptoms reported EENTM: States: no symptoms reported Respiratory: States: no symptoms reported Cardiology: States: no symptoms reported Gastrointestinal/Abdominal: States: see HPI Genitourinary: States: no symptoms reported Musculoskeletal: States: no symptoms reported Skin: States: no symptoms reported Neurological: States: no symptoms reported Endocrine: States: no symptoms reported Hematologic/Lymphatic: States: no symptoms reported Past Medical History (General) - Patient Medical History Hx Seizures: No Hx Stroke: Yes - 1996 Hx Dementia: No Hx Asthma: No Hx of COPD: No Hx Cardiac Disorders: Yes - CHF Hx Congestive Heart Failure: No Hx Pacemaker: Yes Hx Hypertension: Yes Hx Thyroid Disease: No Hx Diabetes: Yes Hx Gastroesophageal Reflux: Yes Hx Renal Disease: No Hx Cancer: Yes - BREAST Hx of HIV: No Hx Hepatitis C: No Hx MRSA: Yes MRSA Source:: Wound - Vaccination History Hx Tetanus, Diphtheria Vaccination: Yes Hx Influenza Vaccination: No Hx Pneumococcal Vaccination: Yes - Social History Hx Tobacco Use: No Hx Chewing Tobacco Use: No Hx Alcohol Use: No Hx Substance Use: No Hx Substance Use Treatment: No Hx Depression: No Hx Physical Abuse: No Hx Emotional Abuse: No Hx Suspected Abuse: No - Female History Patient is a Female of Child Bearing Age (10 -59 yrs old): No Patient : No Family Medical History - Family History Grandparents Family History: Unknown Living Status: Hx Cardiac Disease: Yes Hx Family Diabetes: Yes Physical Exam - Physical Exam General Appearance: Alert Respiratory: lungs clear Cardiovascular/Chest: normal peripheral pulses, regular rate, rhythm Gastrointestinal/Abdominal: other - TTP over bladder. No guarding nor rebound tenderness. NABS. negative Juarez's sign. Back Exam: no CVA tenderness Progress - Progress Progress: 11/02/16 21:48 CT showed no acute abdominal process. Patient is anemia with mildly elevated liver enzymes. EKG read by me showed NSR with no ST elevations nor depressions. No T wave inversions. No LBBB. Laboratory Tests 11/02/16 11/02/16 11/02/16 18:59 18:59 19:21 WBC 4.7 L RBC 4.19 L Hgb 10.3 L Hct 31.4 L MCV 74.9 L MCH 24.5 L MCHC 32.7 L RDW 17.4 H Plt Count 131 MPV 7.9 Absolute Neuts (auto) 2.60 Absolute Lymphs (auto) 1.50 Absolute Monos (auto) 0.30 Absolute Eos (auto) 0.30 Absolute Basos (auto) 0.10 Neutrophils % 55.8 Lymphocytes % 31.4 Monocytes % 6.1 Eosinophils % 5.6 H Basophils % 1.1 Sodium 138 Potassium 4.1 Chloride 102 Carbon Dioxide 26 Anion Gap 14.1 BUN 26 H Creatinine 0.57 L BUN/Creatinine Ratio 45.6 H Random Glucose 81 Serum Osmolality 279.5 Calcium 9.1 Total Bilirubin 0.3 AST 114 H ALT 91 H Alkaline Phosphatase 126 H Creatine Kinase 58 CK-MB (CK-2) 2.9 CK-MB (CK-2) % Not Reportable Troponin I < 0.02 Serum Total Protein 6.8 Albumin 3.7 Globulin 3.1 Albumin/Globulin Ratio 1.2 Lipase 36 Urine Color Yellow Urine Appearance Clear Urine pH 5.5 Ur Specific [place] 1.020 Urine Protein Negative Urine Glucose (UA) Negative Urine Ketones Trace Urine Blood Negative Urine Nitrite Negative Urine Bilirubin Negative Urine Urobilinogen 0.2 Ur Leukocyte Esterase Negative Urine RBC 0-1 Urine WBC 1-3 Ur Epithelial Cells 3-5 Urine Bacteria 1+ Departure - Departure Clinical Impression: Pelvic pain, Anemia, Elevated liver enzymes Disposition: Discharge to Home or Self Care Condition: Good Departure Forms: ED Discharge - Pt. Copy, Patient Portal Self Enrollment Instructions: DI for Abdominal Pain-Adult Diet: resume usual diet Activity: increase activity as tolerated Referrals: Jemal Gonzalez MD [Primary Care Provider] - 1-2 Weeks Home Medications: Ambulatory Orders Alprazolam [Xanax] 0.5 mg PO TID PRN 08/18/13 Metformin HCl 500 mg PO BIDFD 08/18/13 Isosorbide Mononitrate [Isosorbide Mononitrate ER] 30 mg PO DAILY 02/01/15 Methotrexate Sodium (Antirheum [Rheumatrex] 15 mg PO SA 02/01/15 Potassium Chloride [Potassium Chloride ER] 20 meq PO BIDFD 02/01/15 Sertraline HCl 100 mg PO DAILY 02/01/15 Albuterol Inhaler [Ventolin Hfa Inhaler] 1 puff INH QID PRN 06/17/15 Losartan Potassium 25 mg PO DAILY 06/17/15 Gabapentin 300 mg PO TID 10/17/15 Carvedilol [Coreg] 3.125 mg PO BID 10/18/15 Levalbuterol Nebs [Xopenex NEBS] 1.25 mg NEB RTTID #0 vial 10/21/15 Pantoprazole Tablet [Protonix] 40 mg PO DAILY 12/11/15 Methocarbamol [Robaxin] 500 mg PO BID #10 tab 05/01/16 Additional Instructions: Visite [facility] en la semana entrante. Print Language: Azeri
[2016-11-02 19:16] VITALS: O2SAT 97
[2016-11-02] MEDS ORDERED: MORPHINE SULFATE INJ 10 MG/ML VIAL IM ONE (21:08)
[2016-11-02] MEDS ORDERED: MORPHINE SULFATE INJ 10 MG/ML VIAL ONE (21:09)
--- NOTE | 2016-11-02 21:31 | CT ---
EXAM DESCRIPTION: Abdoment/Pelvis w/o Contrast CLINICAL HISTORY: pelvic pain COMPARISON: None Available TECHNIQUE: Contiguous axial images of the abdomen and pelvis were obtained followed by reconstruction images. This exam was performed according to our departmental dose-optimization program, which includes automated exposure control, adjustment of the mA and/or kV according to patient size and/or use of iterative reconstruction technique. FINDINGS: There is a calcified pulmonary nodule within the left lung. Linear opacities within the lungs may represent scar versus subsegmental atelectasis. Patient is status post cholecystectomy. There is atherosclerosis. Patient is status post lumbar surgery. Patient is status post left hip arthroplasty. Metallic artifact degrades multiple images. Calcification within the pelvis may represent a phlebolith. The liver, spleen, pancreas and kidneys are within normal limits. There is no hydronephrosis or renal stones. Adrenal glands are within normal limits. Aorta is of normal caliber and tapering. There is no free fluid in the abdomen or pelvis. There is no bowel obstruction. There is no stranding of the mesenteric fat to suggest an inflammatory response. The appendix is within normal limits. There is no pericecal inflammation. Patient is status post hysterectomy. IMPRESSION: No acute intra-abdominal abnormality Electronically signed by: Samuel Sheehan MD 11/02/2016 9:30 PM CDT
[2016-11-02 21:51] VITALS: TEMP 97.5
[2016-11-02 22:07] VITALS: BP 130/64
== END 2016-11-02 22:13 | disposition home or self-care (01) ==
LOC: ER 18:10
DX: R10.2 Pelvic and perineal pain (principal); D64.9 Anemia, unspecified; R74.8 Abnormal levels of other serum enzymes; I11.0 Hypertensive heart disease with heart failure; I50.9 Heart failure, unspecified; E11.9 Type 2 diabetes mellitus without complications; K21.9 Gastro-esophageal reflux disease without esophagitis; Z86.73 Personal history of transient ischemic attack (TIA), and cerebral infarction without residual deficits; Z85.3 Personal history of malignant neoplasm of breast; Z79.899 Other long term (current) drug therapy; Z88.8 Allergy status to other drugs, medicaments and biological substances
CPT/HCPCS: 36415; 74176; 80053; 81001; 82550; 82553; 83690; 84484; 85025; 93005; J2270

== ENCOUNTER 2016-12-15 15:42 | Emergency (ER) | payer MEDICARE, MEDICAID ==
[2016-12-15 16:12] VITALS: TEMP 98.6
[2016-12-15] MEDS ORDERED: KETOROLAC TROMETHAMINE INJ 30 MG/ML VIAL IM ONE (16:14)
[2016-12-15] MEDS ORDERED: predniSONE 20 MG TAB PO ONE (16:14)
[2016-12-15] MEDS ORDERED: CARISOPRODOL 350 MG TAB PO ONE (16:15)
--- NOTE | 2016-12-15 16:17 | ED.PDOC ---
History of Present Illness - General Chief Complaint: Back Pain or Injury Stated Complaint: Back pain Time Seen by Provider: 12/15/16 15:45 Source: patient Exam Limitations: no limitations - History of Present Illness Initial Comments: The patient is a 66-year-old female presenting to the emergency room secondary to chronic persistent left low back pain and left hip pain. She had surgeries in both sites within the last year. She is apparently scheduled to have further surgeries at both sites in the coming weeks. The patient takes hydrocodone written by her orthopedist apparently. She ran out of this yesterday and was unable to get it filled in time for the weekend so her pain has gotten worse. No new symptoms. No incontinence. She is a diabetic. No recent injury. She has had workup for the persistent pain in both sites with her specialists. Timing/Duration: constant Severity: severe Improving Factors: immobilization, medication Worsening Factors: movement Associated Symptoms: denies symptoms Allergies/Adverse Reactions: Allergies Diphenhydramine [From Benadryl] Allergy (Severe, Verified 12/15/16 16:00) Anaphylaxis Ciprofloxacin [From Cipro] Allergy (Verified 12/15/16 16:00) Home Medications: Ambulatory Orders Alprazolam [Xanax] 0.5 mg PO TID PRN 08/18/13 Metformin HCl 500 mg PO BIDFD 08/18/13 Isosorbide Mononitrate [Isosorbide Mononitrate ER] 30 mg PO DAILY 02/01/15 Methotrexate Sodium (Antirheum [Rheumatrex] 15 mg PO SA 02/01/15 Potassium Chloride [Potassium Chloride ER] 20 meq PO BIDFD 02/01/15 Sertraline HCl 100 mg PO DAILY 02/01/15 Albuterol Inhaler [Ventolin Hfa Inhaler] 1 puff INH QID PRN 06/17/15 Losartan Potassium 25 mg PO DAILY 06/17/15 Gabapentin 300 mg PO TID 10/17/15 Carvedilol [Coreg] 3.125 mg PO BID 10/18/15 Levalbuterol Nebs [Xopenex NEBS] 1.25 mg NEB RTTID #0 vial 10/21/15 Pantoprazole Tablet [Protonix] 40 mg PO DAILY 12/11/15 Methocarbamol [Robaxin] 500 mg PO BID #10 tab 05/01/16 Tramadol HCl 50 mg PO Q6HR PRN #15 tab 12/15/16 Review of Systems - Review of Systems Constitutional: States: no symptoms reported EENTM: States: no symptoms reported Respiratory: States: no symptoms reported Cardiology: States: no symptoms reported Gastrointestinal/Abdominal: States: no symptoms reported Genitourinary: States: no symptoms reported Musculoskeletal: States: back pain, joint pain Skin: States: no symptoms reported Neurological: States: anxiety Endocrine: States: no symptoms reported All other Systems: No Change from Baseline Past Medical History (General) - Patient Medical History Hx Seizures: No Hx Stroke: Yes Hx Dementia: No Hx Asthma: No Hx of COPD: No Hx Cardiac Disorders: Yes Hx Congestive Heart Failure: No Hx Pacemaker: Yes Hx Hypertension: Yes Hx Thyroid Disease: No Hx Diabetes: Yes Hx Gastroesophageal Reflux: Yes Hx Renal Disease: No Hx Cancer: Yes - BREAST Hx of HIV: No Hx Hepatitis C: No Hx MRSA: Yes MRSA Source:: Wound Surgical History: cholecystectomy, pacemaker, other - Vaccination History Hx Tetanus, Diphtheria Vaccination: Yes Hx Influenza Vaccination: Yes - 2015 Hx Pneumococcal Vaccination: Yes - 2014 - Social History Hx Tobacco Use: No Hx Chewing Tobacco Use: No Hx Alcohol Use: No Hx Substance Use: No Hx Substance Use Treatment: No Hx Depression: No Hx Physical Abuse: No Hx Emotional Abuse: No Hx Suspected Abuse: No - Female History Patient is a Female of Child Bearing Age (10 -59 yrs old): No Patient : No Family Medical History - Family History Grandparents Family History: Unknown Living Status: Hx Cardiac Disease: Yes Hx Family Diabetes: Yes Physical Exam - Physical Exam General Appearance: Alert, Anxious Eye Exam: bilateral normal Ears, Nose, Throat: normal ENT inspection, normal pharynx Neck: full range of motion, supple Respiratory: lungs clear, normal breath sounds, no respiratory distress, no accessory muscle use Cardiovascular/Chest: normal peripheral pulses, no edema, other - regular rate Peripheral Pulses: radial,right: 2+, radial,left: 2+, dorsalis pedis,right: 2+, dorsalis pedis,left: 2+ Gastrointestinal/Abdominal: non tender, soft Rectal Exam: deferred Back Exam: other - the patient does have some chronic left paraspinal lumbar discomfort palpation. She also has pain in her left hip with movement of the left hip. No crepitus is noted. Extremity: non-tender, no calf tenderness, normal capillary refill Neurologic: director of media II-XII nml as tested, alert, oriented x 3 Skin Exam: normal color Comments: Vital Signs - 24 hr 12/15/16 16:01 Temperature 98.6 F Pulse Rate [ 85 Left Radial] Respiratory 20 Rate Blood Pressure 81/59 [Left Arm] O2 Sat by Pulse 98 Oximetry above blood pressure was not correct. Blood pressure is 105/62. Progress - Progress Progress: 12/15/16 16:19 the patient is a 66-year-old female with chronic left low back and left hip pain, with her current flare due to running out of her pain medications. She needs to keep follow-up with her specialists. She needs to get her routine pain medications filled on Saturday. the patient will be written for tramadol 50 mg by mouth every 6 hours when necessary #15. she needs to ambulate carefully. She needs to follow-up with her primary care doctor. ER warnings were given. Departure - Departure Clinical Impression: Chronic low back pain Qualifiers: Back pain laterality: left Sciatica presence: with sciatica Sciatica laterality : sciatica of left side Qualified Code(s): M54.42 - Lumbago with sciatica, left side; G89.29 - Other chronic pain Disposition: Discharge to Home or Self Care Condition: Fair Departure Forms: ED Discharge - Pt. Copy, Patient Portal Self Enrollment Instructions: DI for Back Pain With Sciatica Diet: diabetic diet Activity: increase activity as tolerated Referrals: Jemal Gonzalez MD [Primary Care Provider] - 1-5 Days Prescriptions: Tramadol HCl 50 mg PO Q6HR PRN #15 tab PRN Reason: Moderate Pain Home Medications: Ambulatory Orders Alprazolam [Xanax] 0.5 mg PO TID PRN 08/18/13 Metformin HCl 500 mg PO BIDFD 08/18/13 Isosorbide Mononitrate [Isosorbide Mononitrate ER] 30 mg PO DAILY 02/01/15 Methotrexate Sodium (Antirheum [Rheumatrex] 15 mg PO SA 02/01/15 Potassium Chloride [Potassium Chloride ER] 20 meq PO BIDFD 02/01/15 Sertraline HCl 100 mg PO DAILY 02/01/15 Albuterol Inhaler [Ventolin Hfa Inhaler] 1 puff INH QID PRN 04/01/16 Losartan Potassium 25 mg PO DAILY 06/17/15 Gabapentin 300 mg PO TID 10/17/15 Carvedilol [Coreg] 3.125 mg PO BID 10/18/15 Levalbuterol Nebs [Xopenex NEBS] 1.25 mg NEB RTTID #0 vial 10/21/15 Pantoprazole Tablet [Protonix] 40 mg PO DAILY 12/11/15 Methocarbamol [Robaxin] 500 mg PO BID #10 tab 05/01/16 Tramadol HCl 50 mg PO Q6HR PRN #15 tab 12/15/16 Additional Instructions: the patient is a 66-year-old female with chronic left low back and left hip pain, with her current flare due to running out of her pain medications. She needs to keep follow-up with her specialists. She needs to get her routine pain medications filled on Saturday. the patient will be written for tramadol 50 mg by mouth every 6 hours when necessary #15. she needs to ambulate carefully. She needs to follow-up with her primary care doctor. ER warnings were given.
[2016-12-15 17:41] VITALS: BP 104/62; O2SAT 95
== END 2016-12-15 17:30 | disposition home or self-care (01) ==
LOC: ER 15:42
DX: M54.42 Lumbago with sciatica, left side (principal); G89.29 Other chronic pain; I10 Essential (primary) hypertension; E11.9 Type 2 diabetes mellitus without complications; Z95.0 Presence of cardiac pacemaker; Z79.899 Other long term (current) drug therapy; Z88.8 Allergy status to other drugs, medicaments and biological substances
CPT/HCPCS: J1885; J7512

== ENCOUNTER → 2017-01-28 | Outpatient (CLI) | payer MEDICARE, MEDICAID | END | disposition home or self-care (01) | LOC: YCFC.O 11:28 | PROVIDERS: ATTEND Anesthesiology Pain Medicine | DX: Z79.891 Long term (current) use of opiate analgesic (principal) ==

== ENCOUNTER 2017-02-21 08:18 | Day surgery (SDC) | payer MEDICARE, MEDICAID ==
[~2017-02-21 08:18] MED LIST: LACTATED RINGERS 1,000 ML ONE; LIDOCAINE 1% 10 ML VIAL INJ ONE; PROPOFOL 200 MG/20 ML VIAL IV ONE
[2017-02-21] MEDS ORDERED: fentaNYL CITRATE INJ 50 MCG/ML AMP ONE (08:58)
[2017-02-21] MEDS ORDERED: MIDAZOLAM INJ 2 MG/2 ML VIAL ONE (08:58)
[2017-02-21] MEDS ORDERED: SODIUM BICARBONATE VIAL 50 MEQ/50 ML VIAL ONE (09:20)
[2017-02-21] MEDS ORDERED: LIDOCAINE 1% 50 ML VIAL INJ ONE (09:20)
[2017-02-21 11:26] VITALS: BP 104/69; TEMP 97.5; O2SAT 97
[2017-02-21] MEDS ORDERED: HEPARIN SODIUM 100 U/ML 5 ML SYG IV ONE (11:29)
--- NOTE | 2017-02-21 13:52 | RAD ---
EXAM DESCRIPTION: Fluoroscopy Up to 1Hr CLINICAL HISTORY: Radiculopathy. Prior lumbar fusion. COMPARISON: Lumbar myelogram and post myelogram lumbar CT scan on the same visit. TECHNIQUE: Multiplanar fluoroscopic guidance in the surgical suite. 2 images available. Fluoroscopy was not performed by the radiologist.. IMPRESSION: Spinal needle visualized at the L2-3 level. Intradural and extradural contrast is visualized. Posterior lumbar fusion..Please refer to surgical report. Fluoroscopic time was 3 minutes, 15 seconds. Cumulative dose not recorded Permanent images from this procedure are stored in the patient's medical record. Electronically signed by: Wayne Vivar MD 02/21/2017 1:51 PM WHEAT FARMER
--- NOTE | 2017-02-21 21:24 | RAD ---
EXAM DESCRIPTION: MYELOGRAM, LUMBAR SPINE: RF CLINICAL HISTORY: LUMBAR RADICULOPATHY COMPARISON: Post lumbar myelogram CT scan following this procedure. TECHNIQUE: Patient's chart was reviewed, and a limited physical examination was performed. The procedure was explained to the patient with Lithuanian-speaking broadcast meteorologist with risks and benefits. The patient with Lithuanian translation, gave verbal and written consent. The procedure was performed in the OR with conscious sedation administered by Hospital anesthesiologist for approximately 30 minutes. Patient prone on C-arm fluoroscopic table. L2-3 interspinous fossa localized by fluoroscopy. Overlying skin was marked and prepped with sterile solution and sterile draping applied. Subcutaneous and deep 1% xylocaine injection. 3.5 inch, 22-gauge spinal needle introduced into the interspinous fossa under fluoroscopic guidance. Slightly blood-tinged CSF fluid appeared in the hub of the needle, confirming placement in the subarachnoid space. The depth of fluid in the abdomen was significantly affected by respiratory motion. Very minimal opening pressure was noted. Approximately 15 mL of intrathecal contrast was injected under fluoroscopic visualization, with extreme resistance. Contrast was also noted extending into the epidural space and the bilateral L2-3 facet joints. No contrast in the epidural or subarachnoid space below the L3 level. The depth of the needle was checked with the C-arm dated into the lateral position. Patient tolerated the procedure well. Patient transferred to the CT suite. Successful recovery after anesthesia. FINDINGS: C-arm image posterior shows transpedicular fusion bilaterally at L4-5 with cross-link and interbody fusion device. Bilateral connecting rods. Contrast in the intradural and epidural space from L2-3 superiorly. No contrast seen below the L3 level. IMPRESSION: 1. Difficult intradural injection of contrast at the L2-3 level for lumbar myelogram. Injection partially intradural and extradural. No contrast in either space below the L3 level. Please refer to postmyelogram lumbar CT scan. Electronically signed by: Wayne Vivar MD 02/21/2017 9:23 PM NUCLEAR DESIGN ENGINEER Workstation: [email or web address]
--- NOTE | 2017-02-22 09:32 | CT ---
EXAM DESCRIPTION: Lumbar Spine CLINICAL HISTORY: LUMBAR RADICULOPATHY COMPARISON: None Available. TECHNIQUE: Spiral, axial 2.5 mm scans through the lumbar spine after lumbar myelogram using 15 cc of intrathecal nonionic contrast. Coronal and sagittal 2.0 mm Reconstructions. 2.5 mm axial scans with bone algorithm. No complications. No adverse contrast reactions. Total Exam DLP: 1796.9 mGy-cm. This exam was performed according to our departmental CT dose-optimization program which includes automated exposure control, adjustment of the mA and/or kV according to patient size and/or use of iterative reconstruction technique; to reduce radiation dose to as low as reasonably achievable (ALARA). FINDINGS: Trace amount of the contrast material entered the subarachnoid space at the injection site at L2-3. Contrast can be seen in the right facet joint at L2-3. Also in the L2-3 interspinous fossa. Contrast in the epidural space above the injection site to the T9 level. The level of the conus cannot be identified. Contrast does not extend in the epidural space inferior to the mid L3 vertebral body. Minimal posterior bulge of the L2-3 disc. Trace retrolisthesis. Significant hypertrophy of the posterior flavum ligaments left more than right; AP canal diameter 4.1 mm to the left of midline. Moderate bilateral facet arthrosis. Bilateral foraminal stenosis more left than right. L3-4: Bilateral facet arthrosis. Partial bilateral L4 laminectomy. Trace retrolisthesis. Moderate left foraminal stenosis and borderline right foraminal stenosis. Minimal posterior disc bulge. Bilateral transpedicular screws at L4-5 with cross link posterior to the disc space. Interbody fusion device with subsidence into the L4 and L5 endplates. Hardware appears intact. No definite evidence for loosening around the screws. Mild left foraminal stenosis. Trace anterolisthesis. L5-S1 disc space loss and spondylosis. Grade 1 anterolisthesis 8.5 mm. Posterior disc bulge with marginal spurs 3 mm. Moderate left foraminal narrowing. Canal is patent. Large anterior spur abutting the disc at S1. Bilateral facet arthrosis at L5-S1 left more than right. L1-2: Posterior disc bulge 3 mm. Marked facet and ligament hypertrophy posteriorly. By the distribution of epidural contrast, AP canal diameter 6 mm in the midline. Bilateral mild foraminal stenosis. Trace anterolisthesis. T12-L1: Minimal posterior disc bulge. Mild to moderate bilateral facet and ligament hypertrophy. AP canal diameter approximately 10 cm. Bilateral borderline foraminal stenosis. IMPRESSION: 1. Limited study due to almost all the contrast entering the extradural space. Since the contrast was injected when CSF was appearing in the injection needle, it is interpreted that scar tissue in the subarachnoid/intradural space and canal stenosis at L2-3 level is contributing to the lack of contrast flow into the subarachnoid/intradural space. 2. Significant facet and ligament hypertrophy posteriorly at L2-3 and bulging disc contributing to severe canal stenosis. Bilateral foraminal stenosis left more than right. Trace retrolisthesis. 3. Bilateral facet arthrosis and ligament hypertrophy at L3-4 with partial bilateral L4 laminectomy. Trace retrolisthesis and moderate left foraminal stenosis, borderline right foraminal stenosis. 4. L4-5 fusion construct with posterior bilateral transpedicular screws and connecting rods. Connecting length posterior to the disc space. Interbody fusion device is subsiding into the endplates. No bony loosening around the screws with hardware intact. Trace anterolisthesis. 5. And L5-S1 spondylosis. Grade 1 anterolisthesis 8.5 mm. Large anterior spur abutting the disc at S1. Bilateral facet arthrosis left more than right. Moderate left foraminal narrowing. 6. Canal stenosis L1-2 with posterior disc bulge and marked facet and ligament hypertrophy posteriorly. Bilateral mild foraminal stenosis. Trace anterolisthesis. Electronically signed by: Wayne Vivar MD 02/22/2017 9:31 AM HOME HEALTH AIDE
== END 2017-02-21 11:55 | disposition home or self-care (01) ==
LOC: AMB 08:18
PROVIDERS: ATTEND Orthopaedic Surgery
DX: M54.16 Radiculopathy, lumbar region (principal); M54.5 Low back pain; E11.9 Type 2 diabetes mellitus without complications; I11.0 Hypertensive heart disease with heart failure; I50.9 Heart failure, unspecified; Z95.0 Presence of cardiac pacemaker; I25.10 Atherosclerotic heart disease of native coronary artery without angina pectoris; M06.9 Rheumatoid arthritis, unspecified; K21.9 Gastro-esophageal reflux disease without esophagitis; E66.9 Obesity, unspecified; Z88.8 Allergy status to other drugs, medicaments and biological substances; Z79.84 Long term (current) use of oral hypoglycemic drugs; Z79.899 Other long term (current) drug therapy
CPT/HCPCS: 36416; 72131; 72265; 76000; 82948; J1642; J2250; J3010; J3490; J7120

== ENCOUNTER 2017-02-24 12:47 | Emergency (ER) | payer MEDICARE, MEDICAID ==
[2017-02-24 13:58] VITALS: TEMP 97.6
[2017-02-24] MEDS ORDERED: KETOROLAC TROMETHAMINE INJ 60 MG/2 ML VIAL IM ONE (15:14)
--- NOTE | 2017-02-24 15:55 | ED.PDOC ---
History of Present Illness - General Chief Complaint: Abdominal Pain Stated Complaint: abdominal pain Time Seen by Provider: 02/24/17 13:07 Information Source: patient, RN notes reviewed, Vital Signs reviewed Exam Limitations: no limitations Additional Information: pt reports that had a study to evaluate her for surgery and since laying on her right side the right upper abd start been hurting, persistent, no acute changes. - History of Present Illness Abdominal Pain Onset Location: RUQ Pain Radiation: flank Quality: moderate Timing/Duration: 1 week Improving Factors: immobilization Worsening Factors: movement Associated Symptoms: fatigue, nausea/vomiting, weakness Review of Systems - Review of Systems Constitutional: Denies: chills, fever EENTM: Denies: eye pain, tearing, ear pain, nose pain, throat pain, mouth pain, mouth swelling Respiratory: Denies: cough, short of breath, stridor, wheezing Cardiology: Denies: chest pain, edema, palpitations, syncope Gastrointestinal/Abdominal: States: abdominal pain, nausea. Denies: constipation, diarrhea Genitourinary: States: frequency. Denies: dysuria, hematuria Musculoskeletal: Denies: joint pain, joint swelling, muscle pain Skin: Denies: change in color Neurological: Denies: anxiety, depressed Endocrine: Denies: intolerance to cold, intolerance to heat Hematologic/Lymphatic: States: no symptoms reported Past Medical History (General) - Patient Medical History Hx Seizures: No Hx Stroke: Yes Hx Dementia: No Hx Asthma: No Hx of COPD: No Hx Cardiac Disorders: Yes Hx Congestive Heart Failure: No Hx Pacemaker: Yes Hx Hypertension: Yes Hx Thyroid Disease: No Hx Diabetes: No Hx Gastroesophageal Reflux: Yes Hx Renal Disease: No Hx Cancer: Yes - breast Hx of HIV: No Hx Hepatitis C: No Hx MRSA: Yes MRSA Source:: Wound Surgical History: cholecystectomy, other - Vaccination History Hx Tetanus, Diphtheria Vaccination: Yes Hx Influenza Vaccination: Yes - 2015 Hx Pneumococcal Vaccination: Yes - 2014 - Social History Hx Tobacco Use: No Hx Chewing Tobacco Use: No Hx Alcohol Use: No Hx Substance Use: No Hx Substance Use Treatment: No Hx Depression: No Hx Physical Abuse: No Hx Emotional Abuse: No Hx Suspected Abuse: No - Female History Patient : No Family Medical History - Family History Grandparents Family History: Unknown Living Status: Hx Cardiac Disease: Yes Hx Family Diabetes: Yes Progress - Progress Progress: 02/24/17 15:55 02/24/17 13:09 Abdoment/Pelvis w/o Contrast [CT] Stat 02/24/17 13:10 Hold Metformin x 48Hrs [id number] 02/24/17 13:15 EKG STAT 02/24/17 13:51 URINALYSIS Stat Laboratory Results WBC 6.0 K/mm3 (4.8-10.8) 02/24/17 13:53 RBC 4.40 M/mm3 (4.20-5.40) 02/24/17 13:53 Hgb 11.4 gm/dL (12.0-16.0) L 02/24/17 13:53 Hct 34.6 % (36.0-47.0) L 02/24/17 13:53 MCV 78.7 fl (81.0-99.0) L 02/24/17 13:53 MCH 25.9 pg (27.0-31.0) L 02/24/17 13:53 MCHC 32.9 g/dL (33.0-37.0) L 02/24/17 13:53 RDW 21.0 % (11.5-14.5) H 02/24/17 13:53 Plt Count 129 K/mm3 (130-400) L 02/24/17 13:53 MPV 8.3 fl (7.40-10.4) 02/24/17 13:53 Absolute Neuts (auto) 4.50 K/uL (1.8-6.8) 02/24/17 13:53 Absolute Lymphs (auto) 1.00 K/uL (1.0-3.4) 02/24/17 13:53 Absolute Monos (auto) 0.30 K/uL (0.2-0.8) 02/24/17 13:53 Absolute Eos (auto) 0.20 K/uL (0.0-0.4) 02/24/17 13:53 Absolute Basos (auto) 0.10 K/uL (0.0-0.1) 02/24/17 13:53 Neutrophils % 74.7 % (42.0-78.0) 02/24/17 13:53 Lymphocytes % 16.8 % (20.0-50.0) L 02/24/17 13:53 Monocytes % 4.6 % (2.0-9.0) 02/24/17 13:53 Eosinophils % 3.0 % (1.0-5.0) 02/24/17 13:53 Basophils % 0.9 % (0.0-2.0) 02/24/17 13:53 Sodium 139 mmol/L (135-145) 02/24/17 13:53 Potassium 3.9 mmol/L (3.6-5.0) 02/24/17 13:53 Chloride 109 mmol/L (101-111) 02/24/17 13:53 Carbon Dioxide 24 mmol/L (21-31) 02/24/17 13:53 Anion Gap 9.9 (12-18) L 02/24/17 13:53 BUN 19 mg/dL (7-18) H 02/24/17 13:53 Creatinine 0.70 mg/dL (0.6-1.3) 02/24/17 13:53 BUN/Creatinine Ratio 27.1 (10-20) H 02/24/17 13:53 Random Glucose 120 mg/dL (70-105) H 02/24/17 13:53 Serum Osmolality 281.0 mOsm/L (275-295) 02/24/17 13:53 Calcium 9.3 mg/dL (8.4-10.2) 02/24/17 13:53 Total Bilirubin 0.4 mg/dL (0.2-1.0) 02/24/17 13:53 AST 16 IU/L (10-42) 02/24/17 13:53 ALT 12 IU/L (10-60) 02/24/17 13:53 Alkaline Phosphatase 75 IU/L (42-121) 02/24/17 13:53 Serum Total Protein 7.1 gm/dL (6.4-8.2) 02/24/17 13:53 Albumin 4.0 g/dl (3.2-5.5) 02/24/17 13:53 Globulin 3.1 gm/dL (2.3-3.5) 02/24/17 13:53 Albumin/Globulin Ratio 1.3 (1.1-1.9) 02/24/17 13:53 Lipase 27 U/L (22-51) 02/24/17 13:20 02/24/17 16:46 pt feeling much improved after medication. CT scan negative except large amount of stool retention; discussed findings with patient. Repeat abd exam was non surgical and soft/ no tenderness Departure - Departure Clinical Impression: Flank pain ICD-10 Supporting Text: right upper abd tenderness Time of Disposition: 16:50 Disposition: Discharge to Home or Self Care Condition: Good Departure Forms: ED Discharge - Pt. Copy, Patient Portal Self Enrollment Instructions: DI for Abdominal Pain-Adult, Constipation Diet: resume usual diet Activity: ambulate only with walker Referrals: Jemal Gonzalez MD [Primary Care Provider] - 1-2 Weeks Prescriptions: Peg [id number] Bicarb-Sod Ch [Golytely] 1 niurka PO ONCE 1 Days #1 niurka Home Medications: Ambulatory Orders Alprazolam [Xanax] 0.5 mg PO TID PRN 08/18/13 Metformin HCl 500 mg PO BIDFD 08/18/13 Isosorbide Mononitrate [Isosorbide Mononitrate ER] 30 mg PO DAILY 02/01/15 Methotrexate Sodium (Antirheum [Rheumatrex] 15 mg PO SA 02/01/15 Potassium Chloride [Potassium Chloride ER] 20 meq PO BIDFD 02/01/15 Sertraline HCl 100 mg PO DAILY 02/01/15 Albuterol Inhaler [Ventolin Hfa Inhaler] 1 puff INH QID PRN 06/17/15 Losartan Potassium 25 mg PO DAILY 06/17/15 Gabapentin 300 mg PO TID 10/17/15 Carvedilol [Coreg] 3.125 mg PO BID 10/18/15 Levalbuterol Nebs [Xopenex NEBS] 1.25 mg NEB RTTID #0 vial 10/21/15 Pantoprazole Tablet [Protonix] 40 mg PO DAILY 12/11/15 Methocarbamol [Robaxin] 500 mg PO BID #10 tab 05/01/16 Tramadol HCl 50 mg PO Q6HR PRN #15 tab 12/15/16 Peg [id number] Bicarb-Sod Ch [Golytely] 1 niurka PO ONCE 1 Days #1 niurka 02/24/17
--- NOTE | 2017-02-24 15:59 | CT ---
EXAM DESCRIPTION: Abdomen t/Pelvis w/o Contrast CLINICAL HISTORY: 66 years Female, abd pain right upper, right flank COMPARISON: CT scan of the abdomen and pelvis dated 11/02/2016. TECHNIQUE: 5 mm axial images through the abdomen and pelvis were performed after the administration of oral contrast. No intravenous contrast. Coronal and sagittal reconstructions were obtained. This exam was performed according to our departmental dose-optimization program which includes use of Automated Exposure Control, adjustment of the mA and/or kV according to patient size and/or use of iterative reconstruction technique. FINDINGS: Lung bases are clear aside from evidence of prior granulomatous disease. No pericardial or pleural effusion. Previous cholecystectomy. Vascular calcifications are present. Noncontrast images of the liver, spleen, kidneys (small lower pole left renal cyst), adrenal glands and pancreas are unremarkable. No ascites or small bowel obstruction. Nonvisualized appendix. No pericecal fat stranding. Noninflamed diverticulum projects off the proximal colon and several project off the distal colon. Large amount of colonic stool. Oral contrast has not yet reached the colon. Previous hysterectomy. No adnexal mass or bladder calculus or free fluid in the pelvis. Images through the pelvis are degraded by metallic artifact from the left hip replacement. Severe degenerative changes involving the right hip. Postoperative spine with internal degenerative changes. IMPRESSION: No renal calculus or evidence of renal obstruction. No finding to explain this patient's right upper quadrant/right flank pain. Minimal diverticulosis. No evidence of diverticulitis. Large amount of colonic stool. Severe right hip osteoarthritis. Electronically signed by: Vanessa Hinojosa MD 02/24/2017 3:58 PM POSTAL WORKER Workstation: [id number]
[2017-02-24 16:39] VITALS: BP 126/77
[2017-02-24 17:04] VITALS: O2SAT 99
== END 2017-02-24 17:03 | disposition home or self-care (01) ==
LOC: ER 12:47
DX: R10.11 Right upper quadrant pain (principal); I10 Essential (primary) hypertension; K21.9 Gastro-esophageal reflux disease without esophagitis; Z95.0 Presence of cardiac pacemaker; Z85.3 Personal history of malignant neoplasm of breast
CPT/HCPCS: 36415; 74176; 80053; 81001; 83690; 85025; 93005; J1885

== ENCOUNTER 2017-06-12 16:59 | Emergency (ER) | payer MEDICARE, OTHER ==
[2017-06-12 17:18] VITALS: BP 121/55; TEMP 98.1; O2SAT 99
[2017-06-12] MEDS ORDERED: KETOROLAC TROMETHAMINE INJ 60 MG/2 ML VIAL IM ONE (17:40)
[2017-06-12] MEDS ORDERED: HYDROcodone 10MG/APAP 325MG 1 EA TAB PO ONE (17:40)
[2017-06-12] MEDS ORDERED: [UNRECOGNIZED DRUG - OTHER] PO ONE (17:40)
--- NOTE | 2017-06-12 17:50 | ED.PDOC ---
History of Present Illness - General Chief Complaint: Dental/Mouth Stated Complaint: dental/gum pain Time Seen by Provider: 06/12/17 17:39 Source: patient Exam Limitations: no limitations - History of Present Illness Initial Comments: PT PRESENTS TO THE ED WITH COMPLAINT OF GINGIVAL PAIN FOR THE PAST 3 DAYS. PT DOES NOT HAVE DENTIST AND HAS SEVERAL TEETH THAT ARE DECAYED TO THE GUMLINE. Timing/Duration: gradual Severity: severe EENT Location: dental Prearrival Treatment: no prearrival treatment Improving Factors: nothing Worsening Factors: nothing Associated Symptoms: denies symptoms Allergies/Adverse Reactions: Allergies Diphenhydramine [From Benadryl] Allergy (Severe, Verified 12/15/16 16:00) Anaphylaxis Ciprofloxacin [From Cipro] Allergy (Verified 12/15/16 16:00) Home Medications: Ambulatory Orders Alprazolam [Xanax] 0.5 mg PO TID PRN 08/18/13 Metformin HCl 500 mg PO BIDFD 08/18/13 Isosorbide Mononitrate [Isosorbide Mononitrate ER] 30 mg PO DAILY 02/01/15 Methotrexate Sodium (Antirheum [Rheumatrex] 15 mg PO SA 02/01/15 Potassium Chloride [Potassium Chloride ER] 20 meq PO BIDFD 02/01/15 Sertraline HCl 100 mg PO DAILY 02/01/15 Albuterol Inhaler [Ventolin Hfa Inhaler] 1 puff INH QID PRN 06/17/15 Gabapentin 300 mg PO TID 10/17/15 Carvedilol [Coreg] 3.125 mg PO BID 10/18/15 Pantoprazole Tablet [Protonix] 40 mg PO DAILY 12/11/15 Acetaminophen W/ Codeine [Tylenol W/ CODEINE #3] 1 ea PO Q4HR PRN #24 06/12/17 Folic Acid 2 mg PO DAILY 06/12/17 Ibuprofen 800 mg PO Q8HR PRN #30 tab 06/12/17 Penicillin V Potassium 500 mg PO QID 7 Days #28 tab 06/12/17 Review of Systems - Review of Systems Constitutional: Denies: chills, fever EENTM: States: mouth pain. Denies: nose pain, mouth swelling Respiratory: Denies: cough, short of breath Cardiology: Denies: chest pain, palpitations Gastrointestinal/Abdominal: Denies: nausea, vomiting Past Medical History (General) - Patient Medical History Hx Seizures: No Hx Stroke: Yes Hx Dementia: No Hx Asthma: No Hx of COPD: No Hx Cardiac Disorders: Yes Hx Congestive Heart Failure: No Hx Pacemaker: Yes Hx Hypertension: Yes Hx Thyroid Disease: No Hx Diabetes: Yes Hx Gastroesophageal Reflux: Yes Hx Renal Disease: No Hx Cancer: Yes - breast Hx of HIV: No Hx Hepatitis C: No Hx MRSA: Yes MRSA Source:: Wound Surgical History: pacemaker - Vaccination History Hx Tetanus, Diphtheria Vaccination: Yes Hx Influenza Vaccination: No Hx Pneumococcal Vaccination: Yes - Social History Hx Tobacco Use: No Hx Chewing Tobacco Use: No Hx Alcohol Use: No Hx Substance Use: No Hx Substance Use Treatment: No Hx Depression: No Hx Physical Abuse: No Hx Emotional Abuse: No Hx Suspected Abuse: No - Female History Patient : No Family Medical History - Family History Grandparents Family History: Unknown Living Status: Hx Cardiac Disease: Yes Hx Family Diabetes: Yes Physical Exam - Physical Exam General Appearance: Alert, Obvious distress, Well Developed, Well Groomed, Well Hydrated, Well Nourished Eye Exam: bilateral normal Nasal Exam: normal inspection Throat Exam: pharynx normal, dental tenderness - BOTH UPPER MIDDLE INCISORS ARE DECAYED TO THE GUMLINE, THERE IS MILD SWELLING AND ERYTHEMA ABOVE RIGHT MIDDLE INCISOR WITH TENDERNESS TO PALPATION. Neck: non-tender, full range of motion, normal inspection Neurologic: alert, normal mood/affect Skin Exam: normal color, warm/dry Departure - Departure Clinical Impression: Dental abscess, Dental caries, Dental neglect Time of Disposition: 17:51 Disposition: Discharge to Home or Self Care Condition: Fair Departure Forms: ED Discharge - Pt. Copy, Patient Portal Self Enrollment Instructions: DI for Dental Pain, Tooth Abscess Referrals: Jemal Gonzalez MD [Primary Care Provider] - 1-2 Weeks Prescriptions: Acetaminophen W/ Codeine [Tylenol W/ CODEINE #3] 1 ea PO Q4HR PRN #24 PRN Reason: Pain Ibuprofen 800 mg PO Q8HR PRN #30 tab PRN Reason: Pain Penicillin V Potassium 500 mg PO QID 7 Days #28 tab Home Medications: Ambulatory Orders Alprazolam [Xanax] 0.5 mg PO TID PRN 08/18/13 Metformin HCl 500 mg PO BIDFD 08/18/13 Isosorbide Mononitrate [Isosorbide Mononitrate ER] 30 mg PO DAILY 02/01/15 Methotrexate Sodium (Antirheum [Rheumatrex] 15 mg PO SA 02/01/15 Potassium Chloride [Potassium Chloride ER] 20 meq PO BIDFD 02/01/15 Sertraline HCl 100 mg PO DAILY 02/01/15 Albuterol Inhaler [Ventolin Hfa Inhaler] 1 puff INH QID PRN 06/17/15 Gabapentin 300 mg PO TID 10/17/15 Carvedilol [Coreg] 3.125 mg PO BID 10/18/15 Pantoprazole Tablet [Protonix] 40 mg PO DAILY 12/11/15 Acetaminophen W/ Codeine [Tylenol W/ CODEINE #3] 1 ea PO Q4HR PRN #24 06/12/17 Folic Acid 2 mg PO DAILY 06/12/17 Ibuprofen 800 mg PO Q8HR PRN #30 tab 06/12/17 Penicillin V Potassium 500 mg PO QID 7 Days #28 tab 06/12/17
== END 2017-06-12 18:06 | disposition home or self-care (01) ==
LOC: ER 16:59
DX: K02.9 Dental caries, unspecified (principal); K04.7 Periapical abscess without sinus; I10 Essential (primary) hypertension; E11.9 Type 2 diabetes mellitus without complications; K21.9 Gastro-esophageal reflux disease without esophagitis; Z95.0 Presence of cardiac pacemaker; Z85.3 Personal history of malignant neoplasm of breast; Z79.899 Other long term (current) drug therapy

== ENCOUNTER 2017-07-19 10:21 | Emergency (ER) | payer MEDICARE, MEDICAID ==
--- NOTE | 2017-07-19 11:03 | ED.PDOC ---
History of Present Illness - General Chief Complaint: Chest Pain/NV Stated Complaint: chest pain;dizziness Time Seen by Provider: 07/19/17 10:50 Source: patient Exam Limitations: no limitations - History of Present Illness Initial Comments: Patient presents with mid-sternal chest pain since last night. She says it is constant, non-radiating, sharp. She says she had previous episodes when she had her "strokes" 5 years ago and 15 years ago. She also says she has dyspnea. She states that she has a pacemaker for having a "low heart rate". She denies any syncope. She was diagnosed with breast cancer 6 years ago. She denies any history of pulmonary embolisms but both her strokes were ischemic. No other complaints. She also recently had lumbar surgery. Timing/Duration: other - 12 hours Severity: moderate Improving Factors: nothing Worsening Factors: nothing Associated Symptoms: shortness of breath Allergies/Adverse Reactions: Allergies Diphenhydramine [From Benadryl] Allergy (Severe, Verified 12/15/16 16:00) Anaphylaxis Ciprofloxacin [From Cipro] Allergy (Verified 12/15/16 16:00) Home Medications: Ambulatory Orders Alprazolam [Xanax] 0.5 mg PO TID PRN 08/18/13 Metformin HCl 500 mg PO BIDFD 08/18/13 Isosorbide Mononitrate [Isosorbide Mononitrate ER] 30 mg PO DAILY 02/01/15 Methotrexate Sodium (Antirheum [Rheumatrex] 20 mg PO SA 02/01/15 Sertraline HCl 100 mg PO DAILY 02/01/15 Albuterol Inhaler [Ventolin Hfa Inhaler] 1 puff INH QID PRN 06/17/15 Gabapentin 100 mg PO TID 10/17/15 Carvedilol [Coreg] 3.125 mg PO BID 10/18/15 Pantoprazole Tablet [Protonix] 40 mg PO DAILY 12/11/15 Folic Acid 2 mg PO DAILY 06/12/17 Potassium Chloride Microencaps [Klor-Con M20] 20 meq PO BIDFD 07/19/17 Review of Systems - Review of Systems Constitutional: States: no symptoms reported EENTM: States: no symptoms reported Respiratory: States: see HPI Cardiology: States: see HPI Gastrointestinal/Abdominal: States: no symptoms reported Genitourinary: States: no symptoms reported Musculoskeletal: States: no symptoms reported Skin: States: no symptoms reported Neurological: States: no symptoms reported Endocrine: States: no symptoms reported Hematologic/Lymphatic: States: no symptoms reported Past Medical History (General) - Patient Medical History Hx Seizures: No Hx Stroke: Yes Hx Dementia: No Hx Asthma: No Hx of COPD: No Hx Cardiac Disorders: Yes Hx Congestive Heart Failure: No Hx Pacemaker: Yes Hx Hypertension: Yes Hx Thyroid Disease: No Hx Diabetes: Yes Hx Gastroesophageal Reflux: Yes Hx Renal Disease: No Hx Cancer: Yes - breast Hx of HIV: No Hx Hepatitis C: No Hx MRSA: Yes MRSA Source:: Wound - Vaccination History Hx Tetanus, Diphtheria Vaccination: Yes Hx Influenza Vaccination: No Hx Pneumococcal Vaccination: Yes - Social History Hx Tobacco Use: No Hx Chewing Tobacco Use: No Hx Alcohol Use: No Hx Substance Use: No Hx Substance Use Treatment: No Hx Depression: No Hx Physical Abuse: No Hx Emotional Abuse: No Hx Suspected Abuse: No - Female History Patient : No Family Medical History - Family History Grandparents Family History: Unknown Living Status: Hx Cardiac Disease: Yes Hx Family Diabetes: Yes Physical Exam - Physical Exam General Appearance: Alert Eye Exam: bilateral normal Ears, Nose, Throat: normal ENT inspection Neck: non-tender, full range of motion, supple Respiratory: chest non-tender, lungs clear, normal breath sounds, no respiratory distress Cardiovascular/Chest: normal peripheral pulses, regular rate, rhythm, no edema Gastrointestinal/Abdominal: normal bowel sounds, non tender, soft Back Exam: normal inspection, no CVA tenderness Extremity: normal range of motion, non-tender, normal inspection 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 Patient was accepted here for admission but the family refused and requested [facility]. She was given 85 mg Lovenox SQ and transferred by ambulance. Dr. Ny was the accepting physician. 07/19/17 17:53 EKG showed NSR with no ST changes nor T wave inversions. No LBBB. Troponin negative. D-dimer positive. Departure - Departure Clinical Impression: Pulmonary embolism Disposition: Transfer to Hospital Condition: Fair Departure Forms: ED Discharge - Pt. Copy, Patient Portal Self Enrollment Instructions: DI for Chest Pain Diet: other - as per hospitalist Activity: other - as per hospitalist Referrals: Jemal Gonzalez MD [Primary Care Provider] - 1-2 Weeks Home Medications: Ambulatory Orders Alprazolam [Xanax] 0.5 mg PO TID PRN 08/18/13 Metformin HCl 500 mg PO BIDFD 08/18/13 Isosorbide Mononitrate [Isosorbide Mononitrate ER] 30 mg PO DAILY 02/01/15 Methotrexate Sodium (Antirheum [Rheumatrex] 20 mg PO SA 02/01/15 Sertraline HCl 100 mg PO DAILY 02/01/15 Albuterol Inhaler [Ventolin Hfa Inhaler] 1 puff INH QID PRN 06/17/15 Gabapentin 100 mg PO TID 10/17/15 Carvedilol [Coreg] 3.125 mg PO BID 10/18/15 Pantoprazole Tablet [Protonix] 40 mg PO DAILY 12/11/15 Folic Acid 2 mg PO DAILY 06/12/17 Potassium Chloride Microencaps [Klor-Con M20] 20 meq PO BIDFD 07/19/17
--- NOTE | 2017-07-19 11:07 | RAD ---
EXAM DESCRIPTION: Chest,1 View CLINICAL HISTORY: chest pain COMPARISON: May 01, 2016 IMPRESSION: Single AP portable upright view of the chest shows cardiac silhouette and pulmonary vasculature to be within normal limits. Left subclavian single lead transvenous cardiac pacemaker is noted. Right subclavian Mediport remains in good positioning. Lungs are normally aerated and clear. Calcified pulmonary nodule in the left lower lobe is again seen. No obvious pleural effusion or pneumothorax is seen. Electronically signed by: Aramis Benites MD 07/19/2017 11:05 AM CDT
[2017-07-19 16:01] VITALS: O2SAT 100
--- NOTE | 2017-07-19 16:02 | CT ---
EXAM DESCRIPTION: CTA Chest CLINICAL HISTORY: 67 years, Female, suspicion for pulmonary embolism COMPARISON: None TECHNIQUE: CT pulmonary angiography is performed with thin-section multi detector technique during rapid bolus administration of standard adult dose of nonionic iodinated contrast. IV contrast media. Multiplanar reformatted images are reviewed along with source images and maximum intensity projection three dimensional images which were created on a separate dedicated workstation and are stored in the patient's medical record. FINDINGS: Normal enhancement of central pulmonary arteries. In the lower lobes bilaterally, peripheral small vessels appear fairly well enhanced with a few foci of incomplete luminal enhancement suggesting small peripheral emboli (axial images 52 and 61 on the right plus axial images 61 through 63 on the left). These are thought to represent small acute emboli although sequelae of old embolic disease could give a similar appearance. Coronal, sagittal and oblique reformatted MIP images suggest acute emboli in both lower lobes. Clinical correlation recommended. No aortic aneurysm or dissection. Prominent azygos vein is noted. Heart size is normal. No pericardial effusion. Calcified granuloma in the lingula is present. No worrisome pulmonary mass or noncalcified nodule. Normal enhancement of cardiac chambers. Early enhancement of the aorta is negative for aneurysm or dissection. In the upper abdomen, spleen is enlarged. Gallbladder surgically absent. Dense calcification is seen near the left adrenal gland. Upper abdominal viscera are otherwise unremarkable. No chest wall mass or rib fracture. No axillary or lower cervical adenopathy. Port-A-Cath on the right is seen with cardiac pacer power source on the left causing extensive metal artifact. Plate and screws in the lower C-spine cause artifacts. Coronal and sagittal reformatted MIP images confirm the findings. Above results were called to the emergency room physician Dr. Amadeo Patterson at the time of image interpretation 3:59 PM on 07/19/2017. IMPRESSION: Small bilateral peripheral pulmonary emboli in the lower lobes. This exam was performed according to our departmental dose-optimization program, which includes automated exposure control, adjustment of the mA and/or kV according to patient size and/or use of iterative reconstruction technique. Total DLP equals 586.20 mGycm. Electronically signed by: Avinash Perez MD 07/19/2017 4:01 PM CDT
--- NOTE | 2017-07-19 17:23 | CT ---
EXAM DESCRIPTION: Head CLINICAL HISTORY: headache, about to need PE treatment COMPARISON: May 02, 2016 Technique: Contiguous axial images of the brain were obtained without the administration of intravenous contrast. This exam was performed according to our departmental dose-optimization program which includes use of Automated Exposure Control, adjustment of the mA and/or kV according to patient size and/or use of iterative reconstruction technique. Findings: Brain: Mild cerebral atrophy. No hemorrhage. No territorial infarct. No mass effect. No herniation. Ventricles: Within normal limits for patient's age. Bones: No acute osseous abnormality. Paranasal sinuses: Unremarkable. Mastoid air cells: Unremarkable. Soft tissues: No acute abnormality. IMPRESSION: No acute intracranial abnormalities. Electronically signed by: Bernardino Rizo MD 07/19/2017 5:21 PM CDT
[2017-07-19] MEDS ORDERED: ENOXAPARIN SODIUM 100 MG/ML SYG SUBCU ONE (17:58)
[2017-07-19 19:03] VITALS: BP 147/74; TEMP 98.3
== END 2017-07-19 19:04 | disposition short-term general hospital (02) ==
LOC: ER 10:21
DX: I26.99 Other pulmonary embolism without acute cor pulmonale (principal); I10 Essential (primary) hypertension; E11.9 Type 2 diabetes mellitus without complications; Z86.73 Personal history of transient ischemic attack (TIA), and cerebral infarction without residual deficits; Z85.3 Personal history of malignant neoplasm of breast; Z95.0 Presence of cardiac pacemaker; Z79.84 Long term (current) use of oral hypoglycemic drugs; Z79.899 Other long term (current) drug therapy
CPT/HCPCS: 70450; 71045; 71275; 80048; 80076; 82550; 82553; 83880; 84484; 85025; 85379; 85610; 85730; 93005; 94760; J1650

== ENCOUNTER → 2017-08-20 | Outpatient (CLI) | payer MEDICARE, MEDICAID | LOC: GRHH 09:00 | PROVIDERS: ATTEND Family Medicine | DX: E11.42 Type 2 diabetes mellitus with diabetic polyneuropathy (principal); R53.1 Weakness; I10 Essential (primary) hypertension ==

== ENCOUNTER 2017-09-06 13:12 | Emergency (ER) | payer MEDICARE, MEDICAID ==
[2017-09-06 13:47] VITALS: BP 122/80; TEMP 99; O2SAT 98
[2017-09-06] MEDS ORDERED: traMADol HCL 50 MG TAB PO ONE (14:30)
--- NOTE | 2017-09-06 14:38 | ED.PDOC ---
History of Present Illness - General Chief Complaint: Dental/Mouth Stated Complaint: mouth pain from dental surgeries Time Seen by Provider: 09/06/17 13:54 Source: patient, family Exam Limitations: no limitations - History of Present Illness Initial Comments: patient comes in for increasing pain and swelling to the right side of her face. The patient had dental surgery on Saturday on the front portion of her teeth where she had aveoplasty performed on the top middle of her jaw. Patient was told to stop her Eloquis the day prior to procedure and she did. Patient restarted then 12 hours after the procedure was performed. Initially she felt fine the by that evening she started noticing bruising on the right side of her face. Yesterday it worsened today her pain increased considerably. Patient continues to have bruising which looks the same per her family from yesterday which is complaining of more pain now. She has no fever or chills. She's had no nausea or vomiting. She's had no additional trauma or injury. Timing/Duration: gradual, yesterday Severity: moderate EENT Location: mouth Prearrival Treatment: no prearrival treatment Improving Factors: nothing Worsening Factors: nothing Associated Symptoms: denies symptoms Allergies/Adverse Reactions: Allergies Diphenhydramine [From Benadryl] Allergy (Severe, Verified 09/06/17 13:32) Anaphylaxis Ciprofloxacin [From Cipro] Allergy (Verified 09/06/17 13:32) Home Medications: Ambulatory Orders Alprazolam [Xanax] 0.5 mg PO TID PRN 08/18/13 Metformin HCl 500 mg PO BIDFD 08/18/13 Isosorbide Mononitrate [Isosorbide Mononitrate ER] 30 mg PO DAILY 02/01/15 Methotrexate Sodium (Antirheum [Rheumatrex] 20 mg PO SA 02/01/15 Sertraline HCl 100 mg PO DAILY 02/01/15 Albuterol Inhaler [Ventolin Hfa Inhaler] 1 puff INH QID PRN 06/17/15 Gabapentin 100 mg PO TID 10/17/15 Carvedilol [Coreg] 3.125 mg PO BID 10/18/15 Pantoprazole Tablet [Protonix] 40 mg PO DAILY 12/11/15 Folic Acid 2 mg PO DAILY 06/12/17 Potassium Chloride Microencaps [Klor-Con M20] 20 meq PO BIDFD 07/19/17 Tramadol HCl [Ultram] 50 - 100 mg PO BID PRN 3 Days #10 tab 09/06/17 Review of Systems - Review of Systems Constitutional: Denies: chills, diaphoresis, fever EENTM: States: see HPI. Denies: eye pain, ear pain, nose pain, throat pain Respiratory: States: no symptoms reported. Denies: cough, short of breath, wheezing Cardiology: States: no symptoms reported. Denies: chest pain, edema, palpitations Gastrointestinal/Abdominal: States: no symptoms reported. Denies: abdominal pain, diarrhea, nausea, vomiting Genitourinary: States: no symptoms reported Musculoskeletal: States: no symptoms reported Past Medical History (General) - Patient Medical History Hx Seizures: No Hx Stroke: No Hx Dementia: No Hx Asthma: No Hx of COPD: No Hx Cardiac Disorders: Yes Hx Congestive Heart Failure: No Hx Pacemaker: No Hx Hypertension: Yes Hx Thyroid Disease: No Hx Diabetes: No Hx Gastroesophageal Reflux: No Hx Renal Disease: No Hx Cancer: No Hx of HIV: No Hx Hepatitis C: No Hx MRSA: No MRSA Source:: Wound Surgical History: appendectomy, cholecystectomy, Hysterectomy - Vaccination History Hx Tetanus, Diphtheria Vaccination: Yes Hx Influenza Vaccination: Yes Hx Pneumococcal Vaccination: Yes Immunizations Up to Date: No - Social History Hx Tobacco Use: No Hx Chewing Tobacco Use: No Hx Alcohol Use: No Hx Substance Use: No Hx Substance Use Treatment: No Hx Depression: No Feels Threatened In Home Enviroment: No Feels Threatened In a Relationship: No Hx Physical Abuse: No Hx Emotional Abuse: No Hx Suspected Abuse: No - Female History Patient is a Female of Child Bearing Age (10 -59 yrs old): No Patient : No Family Medical History - Family History Grandparents Family History: Unknown Living Status: Hx Family Congestive Heart Failure: No Hx Family Hypertension: No Hx Cardiac Disease: Yes Hx Family Diabetes: Yes Physical Exam - Physical Exam General Appearance: Comfortable, Other - bruising and swelling to the R jaw and cheek area Eye Exam: bilateral normal Ear Exam: bilateral ear: auricle normal, TM normal Nasal Exam: normal inspection, active bleeding, discharge Throat Exam: pharynx normal, dental tenderness, other - patient has no erythema , edema, or fluctulance to the area of the procedure. Neck: non-tender, full range of motion, supple, normal inspection Cardiovascular/Respiratory: regular rate, rhythm, no M/R/G, normal peripheral pulses, no JVD, normal breath sounds, no respiratory distress Abdominal Exam: non-tender, no organomegaly, no hernia Neurologic: resident care technician II-XII nml as tested, alert, oriented x 3 Progress - Progress Progress: 09/06/17 15:06 Laboratory Results WBC 6.1 K/mm3 (4.8-10.8) 09/06/17 14:09 RBC 4.07 M/mm3 (4.20-5.40) L 09/06/17 14:09 Hgb 10.6 gm/dL (12.0-16.0) L 09/06/17 14:09 Hct 32.2 % (36.0-47.0) L 09/06/17 14:09 MCV 79.1 fl (81.0-99.0) L 09/06/17 14:09 MCH 26.0 pg (27.0-31.0) L 09/06/17 14:09 MCHC 33.0 g/dL (33.0-37.0) 09/06/17 14:09 RDW 18.3 % (11.5-14.5) H 09/06/17 14:09 Plt Count 161 K/mm3 (130-400) 09/06/17 14:09 MPV 7.9 fl (7.40-10.4) 09/06/17 14:09 Absolute Neuts (auto) 4.30 K/uL (1.8-6.8) 09/06/17 14:09 Absolute Lymphs (auto) 1.30 K/uL (1.0-3.4) 09/06/17 14:09 Absolute Monos (auto) 0.40 K/uL (0.2-0.8) 09/06/17 14:09 Absolute Eos (auto) 0.10 K/uL (0.0-0.4) 09/06/17 14:09 Absolute Basos (auto) 0.10 K/uL (0.0-0.1) 09/06/17 14:09 Neutrophils % 69.7 % (42.0-78.0) 09/06/17 14:09 Lymphocytes % 21.3 % (20.0-50.0) 09/06/17 14:09 Monocytes % 5.9 % (2.0-9.0) 09/06/17 14:09 Eosinophils % 2.1 % (1.0-5.0) 09/06/17 14:09 Basophils % 1.0 % (0.0-2.0) 09/06/17 14:09 PT 16.6 SECONDS (9.4-12.5) H 09/06/17 14:09 INR 1.440 09/06/17 14:09 PTT (SP) 36.8 SECONDS (25.1-36.5) H 09/06/17 14:09 Sodium 134 mmol/L (135-145) L 09/06/17 14:09 Potassium 3.1 mmol/L (3.6-5.0) L 09/06/17 14:09 Chloride 103 mmol/L (101-111) 09/06/17 14:09 Carbon Dioxide 24 mmol/L (21-31) 09/06/17 14:09 Anion Gap 10.1 (12-18) L 09/06/17 14:09 BUN 14 mg/dL (7-18) 09/06/17 14:09 Creatinine 0.61 mg/dL (0.6-1.3) 09/06/17 14:09 BUN/Creatinine Ratio 23.0 (10-20) H 09/06/17 14:09 Random Glucose 109 mg/dL (70-105) H 09/06/17 14:09 Serum Osmolality 269.3 mOsm/L (275-295) L 09/06/17 14:09 Calcium 9.4 mg/dL (8.4-10.2) 09/06/17 14:09 Total Bilirubin 0.2 mg/dL (0.2-1.0) 09/06/17 14:09 AST 15 IU/L (10-42) 09/06/17 14:09 ALT 12 IU/L (10-60) 09/06/17 14:09 Alkaline Phosphatase 81 IU/L (42-121) 09/06/17 14:09 Serum Total Protein 6.8 gm/dL (6.4-8.2) 09/06/17 14:09 Albumin 3.5 g/dl (3.2-5.5) 06/22/18 14:09 Globulin 3.3 gm/dL (2.3-3.5) 09/06/17 14:09 Albumin/Globulin Ratio 1.1 (1.1-1.9) 09/06/17 14:09 Patient Name: ARAVIND CASAS Gender: Female Date of : 1950 Referring Physician: EMI PANIAGUA Organization: [facility] Accession Number: [id number] Requested Date: September 06, 2017 13:54 Report Status: Final Requested Procedure: 1 Procedure Description: Head Modality: CT Findings Reporting MD: Wayne Vivar Fellow MD: Not available Dictation Time: Chief Human Resources Officer: Not available Senior Biostatistician/Group Leader Date: EXAM DESCRIPTION: Head: Computed Tomography. CLINICAL HISTORY: pain/swelling soft tissue on blood thinners w/ dental COMPARISON: CT noncontrast head 07/19/2017. TECHNIQUE: Non-helical axial scans through the skull and brain, at 5.0 mm intervals, non-contrast. Axial 2.5 mm reconstructions and sagittal and coronal 2.0 mm reconstructions. Total Exam DLP: 967.47 mGy-cm. This exam was performed according to our departmental dose-optimization program which includes automated exposure control, adjustment of the mA and/or kV according to patient size and/or use of iterative reconstruction technique; to reduce radiation dose to as low as reasonably achievable (ALARA). FINDINGS: No hemorrhage, no mass-effect, and no midline shift. Minimum bilateral periventricular low-density also involving the basal ganglia. No abnormal radiodense material in the brain parenchyma. Vascular calcifications anterior; physiologic calcifications in the pineal gland and choroid plexus. No effacement or displacement of the ventricles, CSF spaces, or subdural spaces. Highly prominent for patient's age. No extra axial fluid collection or hemorrhage. No gross abnormalities of the bony calvarium. Included paranasal sinuses and mastoid air cells are well - aerated. IMPRESSION: 1. No hemorrhage, no mass effect, no midline shift. Age-related bilateral brain parenchymal changes which may also be related to cerebral microvascular disease. Cortical atrophy prominent for patient's age but stable since the prior study.. 2. CT scans are insensitive for detecting small CVAs in the first 24 hours after onset. Evaluation of the brain stem is also limited. If symptoms persist, consider NON-EMERGENT MRI scan of the brain with diffusion imaging patient is feeling better after Ultram. Discussed that although we did find some anemia and some chronic changes are not significantly different than prior to the procedure. I believe this still soreness and swelling and have no evidence of infection or significant blood loss at this time. Patient will be given Ultram 50 mg one to 2 twice a day increased swelling, or increased pain. Departure - Departure Clinical Impression: Dental trauma Qualifiers: Encounter type: initial encounter Qualified Code(s): S09.93XA - Unspecified injury of face, initial encounter Disposition: Discharge to Home or Self Care Condition: Good Departure Forms: ED Discharge - Pt. Copy, Patient Portal Self Enrollment Instructions: DI for Mouth Pain Diet: other - soft diet Referrals: Jemal Gonzalez MD [Primary Care Provider] - 1-2 Weeks Home Medications: Ambulatory Orders Alprazolam [Xanax] 0.5 mg PO TID PRN 08/18/13 Metformin HCl 500 mg PO BIDFD 08/18/13 Isosorbide Mononitrate [Isosorbide Mononitrate ER] 30 mg PO DAILY 02/01/15 Methotrexate Sodium (Antirheum [Rheumatrex] 20 mg PO SA 02/01/15 Sertraline HCl 100 mg PO DAILY 02/01/15 Albuterol Inhaler [Ventolin Hfa Inhaler] 1 puff INH QID PRN 06/17/15 Gabapentin 100 mg PO TID 10/17/15 Carvedilol [Coreg] 3.125 mg PO BID 10/18/15 Pantoprazole Tablet [Protonix] 40 mg PO DAILY 12/11/15 Folic Acid 2 mg PO DAILY 06/12/17 Potassium Chloride Microencaps [Klor-Con M20] 20 meq PO BIDFD 07/19/17 Tramadol HCl [Ultram] 50 - 100 mg PO BID PRN 3 Days #10 tab 09/06/17 Additional Instructions: patient may take Ultram for pain and ice to the area. Return to emergency room for temp greater than 100.5, increased swelling, or redness. Follow up with her oral surgeon in 2-3 days to recheck area.
--- NOTE | 2017-09-06 14:56 | CT ---
EXAM DESCRIPTION: Head: Computed Tomography. CLINICAL HISTORY: pain/swelling soft tissue on blood thinners w/ dental COMPARISON: CT noncontrast head 07/19/2017. TECHNIQUE: Non-helical axial scans through the skull and brain, at 5.0 mm intervals, non-contrast. Axial 2.5 mm reconstructions and sagittal and coronal 2.0 mm reconstructions. Total Exam DLP: 967.47 mGy-cm. This exam was performed according to our departmental dose-optimization program which includes automated exposure control, adjustment of the mA and/or kV according to patient size and/or use of iterative reconstruction technique; to reduce radiation dose to as low as reasonably achievable (ALARA). FINDINGS: No hemorrhage, no mass-effect, and no midline shift. Minimum bilateral periventricular low-density also involving the basal ganglia. No abnormal radiodense material in the brain parenchyma. Vascular calcifications anterior; physiologic calcifications in the pineal gland and choroid plexus. No effacement or displacement of the ventricles, CSF spaces, or subdural spaces. Highly prominent for patient's age. No extra axial fluid collection or hemorrhage. No gross abnormalities of the bony calvarium. Included paranasal sinuses and mastoid air cells are well - aerated. IMPRESSION: 1. No hemorrhage, no mass effect, no midline shift. Age-related bilateral brain parenchymal changes which may also be related to cerebral microvascular disease. Cortical atrophy prominent for patient's age but stable since the prior study.. 2. CT scans are insensitive for detecting small CVAs in the first 24 hours after onset. Evaluation of the brain stem is also limited. If symptoms persist, consider NON-EMERGENT MRI scan of the brain with diffusion imaging. Electronically signed by: Wayne Vivar MD 09/06/2017 2:54 PM CDT
== END 2017-09-06 15:32 | disposition home or self-care (01) ==
LOC: ER 13:12
DX: S00.83XA Contusion of other part of head, initial encounter (principal); R22.0 Localized swelling, mass and lump, head; I10 Essential (primary) hypertension; I51.9 Heart disease, unspecified; Z86.14 Personal history of Methicillin resistant Staphylococcus aureus infection; Z88.8 Allergy status to other drugs, medicaments and biological substances; Z88.1 Allergy status to other antibiotic agents; Z98.890 Other specified postprocedural states; Z79.899 Other long term (current) drug therapy; X58.XXXA Exposure to other specified factors, initial encounter; Y92.9 Unspecified place or not applicable

== ENCOUNTER 2017-11-23 16:18 | Emergency (ER) | payer MEDICARE, MEDICAID ==
[2017-11-23] MEDS ORDERED: cloNIDine HCL 0.1 MG TAB PO ONE (17:26)
[2017-11-23 17:41] VITALS: TEMP 97.8
--- NOTE | 2017-11-23 18:21 | RAD ---
EXAM DESCRIPTION: Femur,Left CLINICAL HISTORY: 67 years Female fall COMPARISON: None. TECHNIQUE: LEFT femur, two views FINDINGS: No acute fractures or dislocations are identified. No osseous destructive lesions. Total hip prosthesis placement on the left without evidence to suggest periprosthetic fracture. The sacrum and pelvic bones are obscured by overlying soft tissue artifact and bowel gas. Mild degenerative change at the knee. IMPRESSION: No acute fracture is identified. Left hip prosthesis Electronically signed by: Lashay Dupree MD 11/23/2017 6:20 PM CDT
--- NOTE | 2017-11-23 18:25 | RAD ---
EXAM DESCRIPTION: Lumbar Spine 3 Views CLINICAL HISTORY: 67 years ,Female fall COMPARISON: None. TECHNIQUE: Three views FINDINGS: Bony demineralization. There are pedicle screws and posterior fixation rods at L4 and L5 with intervertebral graft material noted. There is grade 2 anterolisthesis of L5 on S1 which appears similar to the previous exam. No acute fracture noted in the lumbar spine. Mild wedging at T11 which appears increased over the previous examination. Prosthetic hip is noted on the left. IMPRESSION: Grade 1-2 anterolisthesis of L5 on S1 which was present on the previous examination and may have increased slightly Spinal fusion at L4-L5 Mild compression at T11 which is likely chronic but new as compared to the examination from 2017 Electronically signed by: Lashay Dupree MD 11/23/2017 6:23 PM CDT
--- NOTE | 2017-11-23 18:27 | RAD ---
EXAM DESCRIPTION: Pelvis CLINICAL HISTORY: 67 years Female, fall COMPARISON: Correlation with CT abdomen and pelvis 02/24/2017 FINDINGS: Single AP view of the pelvis. No pelvic fracture identified. A left hip arthroplasty is reidentified. Bilateral hip joints alignment appear maintained. Narrowed hip joint space and osteophyte formation are noted at the right hip joint. Pubic symphysis and bilateral SI joints show no acute finding. Also reidentified lower lumbar spine fixation hardware and intervertebral disc material. Moderate amount of stool in the region of the rectum. IMPRESSION: 1. No acute osseous finding of the pelvis. 2. Left hip arthroplasty. Electronically signed by: Connie Ramires MD 11/23/2017 6:26 PM CDT
[2017-11-23] MEDS ORDERED: ONDANSETRON ODT 8 MG TAB SL ONE (18:55)
[2017-11-23] MEDS ORDERED: MORPHINE SULFATE INJ 10 MG/ML VIAL IM ONE (18:55)
--- NOTE | 2017-11-23 18:58 | ED.PDOC ---
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 No point tenderness region. Occurred: just prior to arrival Method of Injury: fell Improving Factors: rest Worsening Factors: movement Associated Symptoms: none Allergies/Adverse Reactions: Allergies Diphenhydramine [From Benadryl] Allergy (Severe, Verified 09/06/17 13:32) Anaphylaxis Ciprofloxacin [From Cipro] Allergy (Verified 09/06/17 13:32) Home Medications: Ambulatory Orders Alprazolam [Xanax] 0.5 mg PO TID PRN 08/18/13 Metformin HCl 500 mg PO BIDFD 08/18/13 Isosorbide Mononitrate [Isosorbide Mononitrate ER] 30 mg PO DAILY 02/01/15 Methotrexate Sodium (Antirheum [Rheumatrex] 20 mg PO SA 02/01/15 Sertraline HCl 100 mg PO DAILY 02/01/15 Albuterol Inhaler [Ventolin Hfa Inhaler] 1 puff INH QID PRN 06/17/15 Gabapentin 100 mg PO TID 10/17/15 Carvedilol [Coreg] 3.125 mg PO BID 10/18/15 Pantoprazole Tablet [Protonix] 40 mg PO DAILY 12/11/15 Folic Acid 2 mg PO DAILY 06/12/17 Potassium Chloride Microencaps [Klor-Con M20] 20 meq PO BIDFD 07/19/17 Tramadol HCl [Ultram] 50 - 100 mg PO BID PRN 3 Days #10 tab 09/06/17 Review of Systems - Review of Systems Constitutional: States: no symptoms reported EENTM: States: no symptoms reported Respiratory: Denies: short of breath Cardiology: Denies: chest pain, syncope Gastrointestinal/Abdominal: Denies: abdominal pain Musculoskeletal: States: see HPI, back pain, joint pain, muscle pain. Denies: neck pain Skin: States: no symptoms reported Neurological: Denies: headache, numbness, weakness Past Medical History (General) - Patient Medical History Hx Seizures: No Hx Stroke: No Hx Dementia: No Hx Asthma: No Hx of COPD: No Hx Cardiac Disorders: Yes Hx Congestive Heart Failure: No Hx Pacemaker: No Hx Hypertension: Yes Hx Thyroid Disease: No Hx Diabetes: No Hx Gastroesophageal Reflux: No Hx Renal Disease: No Hx Cancer: No Hx of HIV: No Hx Hepatitis C: No Hx MRSA: No MRSA Source:: Wound Surgical History: Hysterectomy - Vaccination History Hx Tetanus, Diphtheria Vaccination: Yes Hx Influenza Vaccination: Yes Hx Pneumococcal Vaccination: Yes - Social History Hx Tobacco Use: No Hx Chewing Tobacco Use: No Hx Alcohol Use: No Hx Substance Use: No Hx Substance Use Treatment: No Hx Depression: No Hx Physical Abuse: No Hx Emotional Abuse: No Hx Suspected Abuse: No - Female History Patient : No Family Medical History - Family History Grandparents Family History: Unknown Living Status: Hx Family Congestive Heart Failure: No Hx Family Hypertension: No Hx Cardiac Disease: Yes Hx Family Diabetes: Yes Physical Exam - Physical Exam General Appearance: Alert, Anxious, No apparent distress, Other - uncomfortable Neck: non-tender, full range of motion, supple, normal inspection Cardiovascular/Respiratory: no respiratory distress Gastrointestinal/Abdominal: non-tender Back: normal inspection, no vertebral tenderness, decreased range of motion Thigh/Hip: normal inspection, no evidence of injury, pain, soft tissue tenderness Leg: normal inspection, no evidence of injury, normal ROM Knee: normal inspection, non-tender, no evidence of injury, normal ROM Ankle: normal inspection, normal ROM Foot: normal inspection, normal ROM Neuro/Tendon: normal motor functions, normal tendon functions, responds to pain , no evidence tendon injury Mental Status: alert, oriented x 3 Skin: normal color, warm/dry Progress - Progress Progress: 11/24/17 06:34 She has a hx of chronic pain & has recently been referred to pain management. She has had lower back surgery & has T3 at home for pain which controls pain well. She has not taken any since this incident. Her findings are chiefly to the hamstring region & I do not find any bony pain. She is able to sit & walk. She has seen Dr. Martinez in the past. If the pain persists she will f/u with him. - EKG/XRAY/CT XRAY: pelvis - x-rays of femur, pelvis & L-spine show no acute process Departure - Departure Clinical Impression: Contusion, multiple sites Contusion of hip and thigh Qualifiers: Encounter type: initial encounter Laterality: left Qualified Code(s): S70.02XA - Contusion of left hip, initial encounter Time of Disposition: 18:57 Disposition: Discharge to Home or Self Care Condition: Fair Departure Forms: ED Discharge - Pt. Copy, Patient Portal Self Enrollment Instructions: DI for Trauma, DI for Leg Pain Activity: no exercise, no lifting, walking as tolerated Referrals: Jemal Gonzalez MD [Primary Care Provider] - 11/25/17 Ancelmo Martinez MD [Active Staff] - 11/25/17 Home Medications: Ambulatory Orders Alprazolam [Xanax] 0.5 mg PO TID PRN 08/18/13 Metformin HCl 500 mg PO BIDFD 08/18/13 Isosorbide Mononitrate [Isosorbide Mononitrate ER] 30 mg PO DAILY 02/01/15 Methotrexate Sodium (Antirheum [Rheumatrex] 20 mg PO SA 02/01/15 Sertraline HCl 100 mg PO DAILY 02/01/15 Albuterol Inhaler [Ventolin Hfa Inhaler] 1 puff INH QID PRN 06/17/15 Gabapentin 100 mg PO TID 10/17/15 Carvedilol [Coreg] 3.125 mg PO BID 10/18/15 Pantoprazole Tablet [Protonix] 40 mg PO DAILY 12/11/15 Folic Acid 2 mg PO DAILY 06/12/17 Potassium Chloride Microencaps [Klor-Con M20] 20 meq PO BIDFD 07/19/17 Tramadol HCl [Ultram] 50 - 100 mg PO BID PRN 3 Days #10 tab 09/06/17
[2017-11-23 19:15] VITALS: BP 143/93; O2SAT 98
== END 2017-11-23 19:36 | disposition home or self-care (01) ==
LOC: ER 16:18
DX: S70.02XA Contusion of left hip, initial encounter (principal); M54.2 Cervicalgia; I10 Essential (primary) hypertension; Z88.8 Allergy status to other drugs, medicaments and biological substances; Z88.1 Allergy status to other antibiotic agents; Z79.899 Other long term (current) drug therapy; W18.39XA Other fall on same level, initial encounter; Y92.9 Unspecified place or not applicable
CPT/HCPCS: 72100; 72170; 73551; J2270

== ENCOUNTER → 2018-01-06 | Outpatient (CLI) | payer MEDICARE, MEDICAID | LOC: GMAJ 14:43 | PROVIDERS: ATTEND Family Medicine | DX: E55.9 Vitamin D deficiency, unspecified (principal) ==

== ENCOUNTER → 2018-01-29 | Outpatient (CLI) | payer MEDICARE, MEDICAID ==
--- NOTE | 2018-01-30 16:36 | RAD ---
EXAM DESCRIPTION: Hip,Left 2 Views CLINICAL HISTORY: 67 years, Female, LUMBAR AND HIP PAIN COMPARISON: Previous study November 23, 2017 TECHNIQUE: AP and frog leg lateral views of the hip FINDINGS: 2 views of the left hip reveal total left hip arthroplasty. Dystrophic calcifications of the left gluteal musculature prominent soft tissues on the AP view, less remarkable on the frog-leg lateral view. Subtle lucency in the medial acetabular region of uncertain significance. The appearance is not consistent with an acute fracture. Continued follow-up recommended. This measures approximately 1 cm. Differential considerations would include destructive lesion from infection or neoplasm versus bone resorption from previous partial fracture. Degenerative changes at the left SI joint and pubic symphysis. IMPRESSION: Total left hip arthroplasty. See above. Electronically signed by: Avinash Perez MD 01/30/2018 4:34 PM [facility]
--- NOTE | 2018-01-30 16:37 | RAD ---
EXAM DESCRIPTION: Lumbar Spine 3 Views CLINICAL HISTORY: LUMBAR AND LT HIP PAIN COMPARISON: None Available. TECHNIQUE: AP/lateral/coned-down lateral FINDINGS: Orthopedic hardware is seen in the lower L-spine. Total left hip arthroplasty. Lucent area questioned in the medial left acetabulum appears less significant on this film. Lateral view shows accentuated lumbar lordosis. Pedicle screws are seen in L4 and L5 levels with sclerotic S1. Disc spacer at L4-5. Disc narrowing at L5-S1. Bones appear osteopenic. IMPRESSION: Negative for fracture. Electronically signed by: Avinash Perez MD 01/30/2018 4:35 PM [facility]
== END ==
LOC: RAD 15:07
PROVIDERS: ATTEND Neurological Surgery
DX: M54.5 Low back pain (principal); M25.552 Pain in left hip; Z96.642 Presence of left artificial hip joint